=== PATIENT | male | born 1965 | race Asian ===

== ENCOUNTER 2016-10-23 05:27 | Inpatient (IN) | payer OTHER ==
[2016-10-22 10:05] VITALS: BMI 25.4
[~2016-10-23] VITALS: Ht 160 cm; Wt 73.4 kg
[2016-10-23] VITALS (32 sets, daily range): BP systolic 87–141; BP diastolic 51–96; PULSE 64–126; RESP 13–20
[2016-10-23] MEDS ORDERED: POLYMYXIN/BACITRACIN 1L IRRIG ONE (06:51)
[2016-10-23] MEDS ORDERED: LIDOCAINE 0.5%/EPI (MDV) 50 ML INJ ONE (06:51)
[2016-10-23] MEDS ORDERED: THROMBIN 5000 UNIT VIAL ONE (06:51)
[2016-10-23] MEDS ORDERED: GELATIN SIZE 100 SPONGE ONE (06:51)
[2016-10-23] MEDS ORDERED: ATOR40TA68 PO (06:59)
[2016-10-23] MEDS ORDERED: LISI40TA9 PO (06:59)
[2016-10-23] MEDS ORDERED: ASPI81TA3 PO (06:59)
[2016-10-23] MEDS ORDERED: SUMA50TA3 PO (06:59)
[2016-10-23] MEDS ORDERED: TRAM300T9 PO (06:59)
[2016-10-23] MEDS ORDERED: AMLO5TAB4 PO (06:59)
[2016-10-23] MEDS ORDERED: METF500T4 PO (06:59)
[2016-10-23] MEDS ORDERED: HYDR50TA3 PO (06:59)
[2016-10-23 07:00] LABS: BASOPHILS % 0.4 % (0.0-2.0); EOSINOPHILS # 0.2 10^3/ul (0.0-0.5); EOSINOPHILS % 3.1 % (0.0-7.0); HEMATOCRIT 39.6 % (42.0-52.0); HEMOGLOBIN 12.7 g/dl (14.0-18.0); LYMPHOCYTES # 2.3 10^3/ul (0.8-2.9); LYMPHOCYTES % 33.8 % (15.0-51.0); MEAN CORPUSCULAR HEMOGLOBIN 22.2 pg (29.0-33.0); MEAN CORPUSCULAR HGB CONC 32.1 g/dl (32.0-37.0); MEAN CORPUSCULAR VOLUME 69.1 fl (82.0-101.0); MONOCYTE # 0.5 10^3/ul (0.3-0.9); MONOCYTES % 7.5 % (0.0-11.0); NEUTROPHIL # 3.8 10^3/ul (1.6-7.5); NEUTROPHILS % 55.2 % (39.0-77.0); PLATELET COUNT 235 10^3/UL (140-440); RED BLOOD COUNT 5.73 10^6/ul (4.70-6.10); RED CELL DISTRIBUTION WIDTH 14.1 % (11.5-14.5); UNCORRECTED WBC 6.8 10^3/ul (4.8-10.8); WHITE BLOOD COUNT 6.8 10^3/ul (4.8-10.8)
[2016-10-23] MEDS ORDERED: GLYCOPYRROLATE 1 MG INJ ONE (07:00)
[2016-10-23] MEDS ORDERED: NEOSTIGMINE 3 MG/3 ML SYRINGE ONE (07:00)
[2016-10-23 07:07] LABS: CONDITION 1; LH ANALYZER COMMENTS 1
[2016-10-23 07:11] LABS: INR 0.91; PROTIME 12.3 Sec (12.2-14.2)
[2016-10-23 07:12] LABS: ALBUMIN 4.9 g/dl (3.3-4.9); PARTIAL THROMBOPLASTIN TIME 34.5 Sec (25.0-35.0)
[2016-10-23 07:13] LABS: POTASSIUM 5.7 mmol/L (3.5-5.1)
[2016-10-23 07:15] LABS: ALBUMIN/GLOBULIN RATIO 1.13; BILIRUBIN,INDIRECT 0.5 mg/dl (0-1.1); BILIRUBIN,TOTAL 0.5 mg/dl (0.2-1.3); TOTAL PROTEIN 9.2 g/dl (6.1-8.1)
[2016-10-23 07:18] LABS: CALCIUM 9.5 mg/dl (8.4-10.2); CREATININE 0.85 mg/dl (0.61-1.24)
[2016-10-23 07:23] LABS: ADD UMIC YES; URINE BILIRUBIN (Dip) NEGATIVE (NEGATIVE); URINE BLOOD (Dip) TRACE (NEGATIVE); URINE COLOR LT. YELLOW (YELLOW); URINE GLUCOSE (Dip) NEGATIVE (NEGATIVE); URINE KETONES (Dip) NEGATIVE (NEGATIVE); URINE LEUKOCYTE ESTERASE (Dip) NEGATIVE (NEGATIVE); URINE NITRITE (Dip) NEGATIVE (NEGATIVE); URINE TOTAL PROTEIN (Dip) NEGATIVE (NEGATIVE); URINE UROBILINOGEN (Dip) 0.2 E.U./dL (0.1-1.0)
--- NOTE | 2016-10-23 07:28 | HPN ---
Date/Time of Note Date/Time of Note DATE: 10/23/16 TIME: 07:27 Interval H&P Admission Note Pt. seen H&P reviewed: No system changes YE SCHUSTER PA-C Oct 23, 2016 07:27
[2016-10-23] MEDS ORDERED: ONDANSETRON 4 MG INJ IV PRN ×2 (07:30→10:00)
[2016-10-23] MEDS: DEXTROSE 5%-LR 1,000 ML IV SCH (07:30)
[2016-10-23 07:32] LABS: URINE RBCS 0-2 /HPF (0)
[2016-10-23] MEDS ORDERED: SUCCINYLCHOLINE CHLORIDE 100 MG/5 ML SYG IV ONE (07:38)
[2016-10-23] MEDS ORDERED: PROPOFOL 20 ML ONE (07:38)
[2016-10-23] MEDS ORDERED: MIDAZOLAM 1 MG/ML 2 ML INJ ONE (07:38)
[2016-10-23] MEDS ORDERED: LIDOCAINE 2% (SDV) 5 ML INJ ONE (07:38)
[2016-10-23] MEDS ORDERED: FENTAnyl 50 MCG/ML VIAL ONE (07:43)
[2016-10-23] MEDS ORDERED: PHENYLephrine (100 MCG/ML) 5ML SYG ONE ×3 (07:54→09:14)
[2016-10-23] MEDS ORDERED: ONDANSETRON 4 MG INJ ONE (08:02)
[2016-10-23] MEDS ORDERED: METOCLOPRAMIDE 10 MG INJ ONE (08:02)
[2016-10-23] MEDS ORDERED: FAMOTIDINE 20 MG INJ ONE (08:02)
[2016-10-23] MEDS ORDERED: ROCURONIUM 50 MG INJ ONE ×2 (08:02→08:23)
[2016-10-23] MEDS ORDERED: EPHEDrine SULFATE 50 MG/5 ML SYG ONE (08:25)
[2016-10-23] MEDS ORDERED: ESMOLOL 10 ML ONE (08:38)
[2016-10-23] MEDS ORDERED: HYDROmorphONE 2 MG/ML SYG ONE (09:32)
--- NOTE | 2016-10-23 09:38 | PREOPHP ---
DATE OF ADMISSION: 10/23/2016 HISTORY OF PRESENT ILLNESS: The patient is approximately 50 years of age, was originally seen in [facility] office for new consultation for evaluation of neck pain and weakness in his upper extremity and al so for gait imbalance. The patient was diagnosed with severe cervical stenosis with cord compressio n. Outpatient management was performed in the form of physical therapy, pain management as well as epidural injections. The patient's condition did not improve. He still continues to complain of ne ck pain and weakness in the extremities. He constantly loses his balance. He wants something more definitive to be done. PAST MEDICAL HISTORY: Per chart. SURGICAL HISTORY: Per chart. SOCIAL HISTORY: Lives with spouse. Denies using drugs, alcohol, tobacco. ALLERGIES: PER CHART. MEDICATIONS TAKEN AT HOME: Per chart. FAMILY HISTORY: Unremarkable. REVIEW OF SYSTEMS: Additional 10-point review of systems conducted. Pertinent positives stated in HPI, otherwise negative. PHYSICAL EXAMINATION: GENERAL: The patient is alert, oriented, follows commands properly. GCS 15. HEENT: Head is atraumatic, normocephalic. Eyes: Sclerae clear, nonicteric. EOMs intact. Pupils equal, reactive. Normal sinuses. Mouth: No lesions, no bleeding, no discharge. NECK: Supple. No thyromegaly, no JVD. No accessory muscle usage. PULMONARY: No dyspnea, no tachypnea. CARDIOVASCULAR: No JVD, no pedal edema. ABDOMEN: Soft without guarding. PERIPHERAL VASCULAR: No edema, no swelling. NEUROLOGIC: The patient has GCS 15 with cranial nerves I-XII intact. No gross abnormalities noted. UPPER EXTREMITIES: He has weakness in the right upper extremity, 3/5 strength at the deltoid, bicep s and the right triceps. Left upper extremity: The patient has good strength. 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 Sensation is intact on both sides. LOWER EXTREMITIES: He is able to move both the lower extremities ____ hip, knees and ankles without deficits. He has equal strength on both sides. Sensation is intact on both sides. IMAGING: MRI dated 09/09/2016 shows severe cervical stenosis with evidence of cord compression at t he C4-C5 level. The patient has severe stenosis from C3 all the way to C7. RECOMMENDATION AT THIS POINT: Obviously, the patient has failed conservative management. He has fa iled pain management, has failed physical therapy, has failed epidural injections. His condition is getting worse. The patient is having more neck pain, is having more weakness in the extremities an d is having more instability of his gait. The only option left at this point is surgical invention in the form of cervical ____ laminectomy ____ fusion. ____ patient was cleared for surgical interve ntion, will be admitted to the hospital for cervical 3 through cervical 7 laminectomy with ____ fusi on, and then patient will be admitted to the hospital for further evaluation and management. Dictated By: YE FRAZIER for BUFFY THOMAS/PANCHO Conf#: [id number] DID#: [id number]
[2016-10-23] MEDS ORDERED: FENTAnyl 50 MCG/ML VIAL IV PRN (10:00)
[2016-10-23] MEDS ORDERED: DIPHENHYDRAMINE 50 MG INJ IV PRN (10:00)
[2016-10-23] MEDS ORDERED: LABETALOL HCL 20MG INJ IV PRN (10:00)
[2016-10-23] MEDS ORDERED: PROCHLORPERAZINE 10 MG INJ IV PRN (10:00)
[2016-10-23] MEDS ORDERED: MEPERIDINE 25 MG INJ IV PRN (10:00)
[2016-10-23] MEDS ORDERED: hydrALAzine 20 MG INJ IV PRN (10:00)
[2016-10-23] MEDS: HYDROmorphONE (0.2 MG/ML) 10ML SYG IV PRN ×6 (11:49→21:30)
--- NOTE | 2016-10-23 12:44 | RADRPT ---
PROCEDURE: Intraoperative imaging of the cervical spine with fluoroscopy. CLINICAL INDICATION: Neck pain. Intraoperative. TECHNIQUE: 2 images of the cervical spine were obtained in the operating room with an image intens ifier. No radiologist was in attendance. 7.0 seconds of fluoroscopy time was used. COMPARISON: No prior study is available for comparison. FINDINGS: Images demonstrate skin sebastian overlying the cervical spine posteriorly. IMPRESSION: 1. Intraoperative imaging of the cervical spine. RPTAT: QQ .Robert Goodman MD, MD Date Time Electronically viewed and signed by .Robert Goodman MD, MD on 10/23/2016 12:44 .R/
[2016-10-23 13:41] LABS: ADD UMIC YES; URINE BILIRUBIN (Dip) NEGATIVE (NEGATIVE); URINE BLOOD (Dip) TRACE (NEGATIVE); URINE COLOR LT. YELLOW (YELLOW); URINE GLUCOSE (Dip) NEGATIVE (NEGATIVE); URINE KETONES (Dip) NEGATIVE (NEGATIVE); URINE LEUKOCYTE ESTERASE (Dip) NEGATIVE (NEGATIVE); URINE NITRITE (Dip) NEGATIVE (NEGATIVE); URINE TOTAL PROTEIN (Dip) NEGATIVE (NEGATIVE); URINE UROBILINOGEN (Dip) 0.2 E.U./dL (0.1-1.0)
[2016-10-23 14:09] LABS: URINE RBCS 0-2 /HPF (0)
[2016-10-23] MEDS: DEXAMETHASONE 4 MG/ML 1 ML INJ IV SCH ×2 (14:10→22:17)
[2016-10-23] MEDS: CEFAZOLIN 1 GM/50 ML (PMX) 50 ML IVPB SCH ×2 (14:11→22:17)
[2016-10-23] MEDS: morphine 10 MG INJ IM PRN ×2 (15:05→19:17)
--- NOTE | 2016-10-23 20:53 | HP ---
Date/Time of Note Date/Time of Note DATE: 10/23/16 TIME: 20:27 Assessment/Plan VTE Prophylaxis VTE Prophylaxis Intervention: SCD's Lines/Catheters IV Catheter Type (from Nrsg): Peripheral IV Urinary Cath still in place: Yes Reason Cath still needed: urinary retention Assessment/Plan Assessment/Plan 1. Severe cervical stenosis with evidence of cord compression of C4-C5 2. Status post cervical laminectomy with fusion by Dr. Peterson on 10/23/2016. - per neuosurgical recommendations. - sp post of antibiotics. - MRI of the neck for post-surgical evaluation. - Continue Decadron, morphine for pain, and Zofran p.r.n. for nausea. - Advance diet as patient tolerates. 3. Hypertension= stable, will start po meds when patient will start po 4. Diabetes Mellitus - Glycemic control - Hg AIC am PLAN Admit to ICU Check neck wound for s/s of infection Pain management AM labs Resume home po meds when stable DVT prophylaxis- SCDs only at this time. No ASA as patient is sp recent spinal Surgery.Further recommendations depend upon patient clinical course, De dr Rowell HPI/ROS Admit Date/Time Admit Date/Time Oct 23, 2016 at 05:27 Hx of Present Illness This is a 50 years old male patient was originally seen by neurologist for evaluation of neck pain and weakness in his upper extremity and also for gait imbalance. The patient was diagnosed with severe cervical stenosis with cord compression. Outpatient management was performed in the form of physical therapy, pain management as well as epidural injections were ineffective. Patient c/o complain of neck pain, weakness, and constantly losing his balance in the extremities all times. MRI on 09/09/2016 showed severe cervical stenosis with evidence of cord compression at the C4-C5 level. The patient has severe stenosis from C3 all the way to C7. Finally patient underwent cervical surgery by Dr Peterson. Patient was seen and assessed in Recovery. Patient is admitted under Dr. Rowell for further treatment and evaluation.Family at bed side- all questions answered. ALLERGIES: NKA MEDICATIONS TAKEN AT HOME: Per chart. FAMILY HISTORY: Unremarkable. REVIEW OF SYSTEMS: Additional 10-point review of systems conducted. Pertinent positives stated in HPI, otherwise negative. ROS Eyes: no complaints ENT: no complaints Respiratory: no complaints Cardiovascular: no complaints Gastrointestinal: no complaints Genitourinary: no complaints Musculoskeletal: neck pain Skin: no complaints Neurologic: other (sp cervical surgery- neck collar noted- intact) PMH/Family/Social Past Medical History Medical History: diabetes, hypertension Past Surgical History Past Surgical Hx: no surgical history Social History SOCIAL HISTORY: Lives with spouse. Denies using drugs, alcohol, tobacco. Alcohol Use: none Smoking Status: Never smoker Drug Use: none Exam/Review of Systems Vital Signs Vitals Vital Signs Date Time Temp Pulse Resp B/P Pulse Ox O2 Delivery O2 Flow Rate FiO2 10/23/16 19:41 120 19 119/74 97 Nasal Cannula 10/23/16 11:31 2.0 10/23/16 10:06 98.2 Exam Constitutional: alert, oriented, well developed Psych: nl mood/affect Eyes: EOMI, PERRL, nl sclera ENMT: nl external ears & nose Neck: other (sp laminectomy, neck collar noted.left neck tenderness noted.) Respiratory: clear to auscultation Cardiovascular: nl pulses Gastrointestinal: non-tender, soft Musculoskeletal: nl extremities to inspection Extremities: normal pulses Neurological: nl mental status, nl speech, other (able to move all four extremities) Skin: nl turgor Lymph: nontender Labs Result Diagram: 10/23/16 0600 10/23/16 0600 Medications Medications Current Medications Cefazolin Sodium (Ancef 1 Gm/50 ml (Pmx)) 50 ml @ 100 mls/hr Q8 IVPB Last administered on 10/23/16 14:11; Admin Dose 100 MLS/HR; Start 10/23/16 at 14:00 ; Stop 10/24/16 at 14:00 Dexamethasone (Decadron) 4 mg Q8 IV Last administered on 10/23/16 14:10; Admin Dose 4 MG; Start 10/23/16 at 14:00 Ondansetron HCl (Zofran Inj) 4 mg Q6H PRN IV NAUSEA AND/OR VOMITING; Start 09/27 at 07:30 Morphine Sulfate (morphine) 1 mg Q2H PRN IV mild; Start 10/23/16 at 07:30 Morphine Sulfate 2 mg 2 mg Q4H PRN IM mod-severe pain Last administered on 10/23 19:17; Admin Dose 1 MG; Start 10/23/16 at 07:30 Dextrose/Lactated Ringer's (D5-Lr) 1,000 ml @ 80 mls/hr [id number] IV Last administered on 10/23/16 07:30; Admin Dose 80 MLS/HR; Start 10/23/16 at 07:30 DANGELO DENNY Oct 23, 2016 20:49 09/27 at 07:30 Morphine Sulfate (morphine) 1 mg Q2H PRN IV mild; Start 10/23/16 at 07:30 Morphine Sulfate 2 mg 2 mg Q4H PRN IM mod-severe pain Last administered on 10/23 19:17; Admin Dose 1 MG; Start 10/23/16 at 07:30 Dextrose/Lactated Ringer's (D5-Lr) 1,000 ml @ 80 mls/hr [id number] IV Last administered on 10/23/16 07:30; Admin Dose 80 MLS/HR; Start 10/23/16 at 07:30 DANGELO DENNY Oct 23, 2016 20:49
[2016-10-24] VITALS (16 sets, daily range): BP systolic 100–138; BP diastolic 59–90; PULSE 78–105; RESP 13–22; Ht 160 cm; Wt 73.4 kg
[2016-10-24] MEDS: morphine 2 MG INJ IV PRN ×4 (01:34→13:42)
[2016-10-24] MEDS: DEXTROSE 5%-LR 1,000 ML IV SCH ×3 (03:37→14:00)
[2016-10-24 05:29] LABS: BASOPHILS % 0.1 % (0.0-2.0); HEMATOCRIT 33.8 % (42.0-52.0); HEMOGLOBIN 10.9 g/dl (14.0-18.0); LYMPHOCYTES # 0.8 10^3/ul (0.8-2.9); LYMPHOCYTES % 7.5 % (15.0-51.0); MEAN CORPUSCULAR HEMOGLOBIN 21.9 pg (29.0-33.0); MEAN CORPUSCULAR HGB CONC 32.1 g/dl (32.0-37.0); MEAN CORPUSCULAR VOLUME 68.3 fl (82.0-101.0); MEAN PLATELET VOLUME 8.9 fl (7.4-10.4); MONOCYTE # 0.3 10^3/ul (0.3-0.9); MONOCYTES % 2.6 % (0.0-11.0); NEUTROPHIL # 9.3 10^3/ul (1.6-7.5); NEUTROPHILS % 89.8 % (39.0-77.0); PLATELET COUNT 220 10^3/UL (140-440); RED BLOOD COUNT 4.95 10^6/ul (4.70-6.10); RED CELL DISTRIBUTION WIDTH 13.7 % (11.5-14.5); UNCORRECTED WBC 10.4 10^3/ul (4.8-10.8); WHITE BLOOD COUNT 10.4 10^3/ul (4.8-10.8)
[2016-10-24 05:31] LABS: CONDITION 1; LH ANALYZER COMMENTS 1
[2016-10-24 05:40] LABS: ALBUMIN 4.1 g/dl (3.3-4.9)
[2016-10-24 05:42] LABS: ALBUMIN/GLOBULIN RATIO 1.24; BILIRUBIN,INDIRECT 0.3 mg/dl (0-1.1); BILIRUBIN,TOTAL 0.3 mg/dl (0.2-1.3); CREATININE 0.98 mg/dl (0.61-1.24); TOTAL PROTEIN 7.4 g/dl (6.1-8.1)
[2016-10-24 05:43] LABS: CALCIUM 8.9 mg/dl (8.4-10.2)
[2016-10-24] MEDS: DEXAMETHASONE 4 MG/ML 1 ML INJ IV SCH ×3 (05:45→20:38)
[2016-10-24] MEDS: CEFAZOLIN 1 GM/50 ML (PMX) 50 ML IVPB SCH ×2 (05:45→13:41)
[2016-10-24] MEDS: FAMOTIDINE 20 MG TAB PO SCH (13:49)
--- NOTE | 2016-10-24 14:26 | PN ---
DATE: 10/24/2016 INTERNAL MEDICINE PROGRESS NOTE SUBJECTIVE: Followup on 50-year-old gentleman status post cervical laminectomy with fusion for cerv ical stenosis and cord compression of the C4-C5. The patient is currently awake, alert. Pain is we ll controlled. Denies any nausea, vomiting. The patient has a cervical collar. OBJECTIVE: VITAL SIGNS: Temperature is 98.7, pulse is 81, blood pressure is 112/75, respiratory rate 17, oxyge n saturation is 97% on 2 L nasal cannula. GENERAL: Well-developed, well-nourished gentleman in no acute distress, currently awake, alert. HEENT: Head is atraumatic, normocephalic. NECK: With cervical collar and drainage and surgical dressing. LUNGS: Clear bilaterally. There is no rhonchi, wheezes, rales noted. HEART: Normal S1, S2. No murmurs, gallops, clicks, rubs noted. ABDOMEN: Flat, soft, nondistended, nontender. Bowel sounds present. EXTREMITIES: There is no edema, clubbing, cyanosis. The patient has a Sinha catheter with clear ur ine. SKIN: There is no rash, petechiae noted. NEUROLOGIC: The patient is awake, alert, and oriented x3, no focal deficits noted. LABORATORY DATA: Today CBC: White blood cells 10.4, hemoglobin 10.9, hematocrit 33.8, platelets 22 0. Chemistry: Sodium 144, potassium 4.0, chloride 100, carbon dioxide 31, anion gap 17, BUN is 16, creatinine 0.98, glucose 192, AST 76, ALT 63, alkaline phosphate is 60. ASSESSMENT AND PLAN: 1. Severe cervical stenosis with evidence of cord compression of C4-C5, status post cervical spencer ctomy with fusion by Dr. Peterson on 10/23/2016. Continue to follow up surgical recommendations. Th e patient is pending MRI of the neck for post-surgical evaluation. The patient is currently on cefa zolin. Continue Decadron, morphine for pain, and Zofran p.r.n. for nausea. Advance diet as patient tolerates. Continue to follow up surgical recommendation. 2. Diabetes mellitus by history. Will resume metformin. Continue NovoLog per mild algorithm slidi ng scale before every meal and at bedtime. 3. Hypertension by history. Continue to monitor blood pressure, hydralazine p.r.n. for systolic bl ood pressure 170. The patient is currently normotensive. 4. Hyperlipidemia. Continue atorvastatin. We will continue sequential compression device for deep venous thrombosis prophylaxis and Pepcid for peptic ulcer disease prophylaxis. Further recommendations based on clinical course. Plan of care discussed with Dr. Jackson. Dictated By: ZONIA MORGAN DIRECTOR ENVIRONMENTAL for ADRIAN JACKSON MD SR/NTS Conf#: [id number] DID#: [id number]
[2016-10-24] MEDS: morphine 10 MG INJ IM PRN (17:48)
--- NOTE | 2016-10-24 18:32 | RADRPT ---
PROCEDURE: MR Cervical Spine. CLINICAL INDICATION: Cervical stenosis, cord compression, postoperative examination TECHNIQUE: An MRI of the cervical spine was performed utilizing the following sequences: Sagittal and axial T1 weighted, sagittal and axial T2 weighted, sagittal T2 weighted with fat saturation, and axial GRE. COMPARISON: 09/09/2016 FINDINGS: There is straightening of the normal cervical lordosis. The patient is status post laminectomies fr om C3 through C7. 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 Vertebral body height s are maintained. There is mild to moderate disk space narrowing from C4-C5 through C6-C7. There i s no subluxation. There is high T1 signal in the inferior C4 vertebral body, which may reflect a he mangioma or modic type 2 endplate signal change. There is congenital narrowing of the central spina l canal again seen at the C2 level. The craniocervical and cervical medullary junctions are unremarkable. Occiput-C2: The anatomic relationships are normal without canal stenosis. C2-3: There is mild to moderate left paracentral disk protrusion, 3 mm. There is severe left and mi ld to moderate right facet hypertrophy. There is moderate to severe central canal stenosis with AP canal diameter measuring 6 mm, and left lateral recess stenosis. There is associated mild cord flat tening, without abnormal cord signal identified. There is mild to moderate right and severe left ne ural foraminal stenosis. C3-4: There is no disk protrusion or extrusion. There is severe right and moderate left facet hyper trophy. There is no central canal stenosis. There is severe right and moderate to severe left neur al foraminal stenosis. C4-5: There is a mild disk osteophyte complex, 2 mm. There is bilateral uncovertebral hypertrophy. There is severe bilateral facet hypertrophy. There is minimal central canal stenosis. There is se blessing bilateral neural foraminal stenosis. There remains central high T2 signal within the cord, con sistent with myelomalacia. C5-6: There is no disk protrusion or extrusion. There is bilateral uncovertebral hypertrophy. Ther e is severe bilateral facet hypertrophy. There is no central canal stenosis. There is severe bilat eral neural foraminal stenosis. C6-7: There is a minimal disk osteophyte complex, and bilateral uncovertebral hypertrophy. There is severe bilateral facet hypertrophy. There is no central canal stenosis. There is severe bilateral neural foraminal stenosis. C7-T1: There is no disk protrusion or extrusion. There is moderate to severe bilateral facet hypert rophy. There is no central canal stenosis. There is no right foraminal stenosis. There is mild to moderate left foraminal stenosis. There is postoperative edema in the posterior soft tissues. IMPRESSION: 1. Interval laminectomies extending from C3-C7, with improvement of previously seen central canal s tenosis at these levels. There is a mild disk osteophyte complex at C4-C5, with minimal residual ce ntral canal narrowing. There is again noted myelomalacia in the cord at the C4-C5 level. 2. At C2-C3, congenital spinal canal narrowing along with a 3 mm left paracentral disk protrusion p roduce moderate to severe central canal stenosis with AP canal diameter measuring 6 mm, and left lat eral recess stenosis. There is associated cord flattening without definite abnormal cord signal. 3. Uncovertebral hypertrophy from C4-C5 through C6-C7. Severe and moderate to severe facet hypertr ophic changes throughout the cervical spine as described. These findings produce neural foraminal s tenosis, severe on the left at C2-C3, on the right at C3-C4, and on both sides from C4-C5 through C6 -C7. RPTAT: HBST .Adonis Campa MD, MD Date Time Electronically viewed and signed by .Adonis Campa MD, on 10/24/2016 18:32 .T/
--- NOTE | 2016-10-24 19:49 | CONS ---
Date/Time of Note Date/Time of Note DATE: 10/24/16 TIME: 19:47 Assessment/Plan Assessment/Plan Additional Assessment/Plan seen/examined cervical stenosis with cord compression cervical 3-7 laminectomy repeat mri shows good decompression of cervical spine awake/alert/follows/sensation intact/able to move all extremities hemovac with 50cc collection pt/ot dc planning for rehab if poss will dc hemovac in 24hrs Consultation Date/Type/Reason Admit Date/Time Oct 23, 2016 at 05:27 Initial Consult Date Exam/Review of Systems Vital Signs Vitals Vital Signs Date Time Temp Pulse Resp B/P Pulse Ox O2 Delivery O2 Flow Rate FiO2 10/24/16 14:00 91 18 121/86 93 Room Air 10/24/16 12:00 98.7 2.0 Intake and Output 10/23/16 10/23/16 10/24/16 15:00 23:00 07:00 Intake Total 1500 ml 162 ml 1430 ml Output Total 510 ml 2950 ml 1200 ml Balance 990 ml -2788 ml 230 ml Results Result Diagram: 10/24/16 0453 10/24/16 0500 Results 24 hrs Laboratory Tests Test 10/24/16 04:53 10/24/16 05:00 Basophils # 0.0 Basophils % 0.1 Blood Morphology Comment Eosinophils # 0.0 Eosinophils % 0.0 Hematocrit 33.8 L Hemoglobin 10.9 L Lymphocytes # 0.8 Lymphocytes % 7.5 L Mean Corpuscular Hemoglobin 21.9 L Mean Corpuscular Hemoglobin Concent 32.1 Mean Corpuscular Volume 68.3 L Mean Platelet Volume 8.9 Monocytes # 0.3 Monocytes % 2.6 Neutrophils # 9.3 H Neutrophils % 89.8 H Nucleated Red Blood Cells # 0.0 Nucleated Red Blood Cells % 0.0 Platelet Count 220 Red Blood Count 4.95 Red Cell Distribution Width 13.7 White Blood Count 10.4 # Alanine Aminotransferase (ALT/SGPT) 63 Albumin 4.1 Albumin/Globulin Ratio 1.24 Alkaline Phosphatase 60 Anion Gap 17 H Aspartate Amino Transf (AST/SGOT) 76 H Blood Urea Nitrogen 16 Calcium Level 8.9 Carbon Dioxide Level 31 Chloride Level 100 Creatinine 0.98 Direct Bilirubin 0.00 Globulin 3.30 H Glucose Level 192 Indirect Bilirubin 0.3 Potassium Level 4.0 Sodium Level 144 Total Bilirubin 0.3 Total Protein 7.4 # Medications Medications Current Medications Ondansetron HCl (Zofran Inj) 4 mg Q6H PRN IV NAUSEA AND/OR VOMITING; Start 09/27 at 07:30 Morphine Sulfate 1 mg 1 mg Q2H PRN IV mild Last administered on 10/24/16 13:42 ; Admin Dose 1 MG; Start 10/23/16 at 07:30 Dextrose/Lactated Ringer's (D5-Lr) 1,000 ml @ 80 mls/hr [id number] IV Last administered on 10/24/16 03:37; Admin Dose 80 MLS/HR; Start 10/23/16 at 07:30 Famotidine (Pepcid) 20 mg DAILY PO Last administered on 10/24/16 13:49; Admin Dose 20 MG; Start 10/24/16 at 13:00 Morphine Sulfate (morphine) 2 mg Q2H PRN IV PAIN LEVEL 1-5; Start 10/24/16 at 18:30 Acetaminophen/ Hydrocodone Bitart ([place] (5/325)) 1 tab Q4H PRN PO MILD PAIN LEVEL 1-3; Start 10/24/16 at 18:30 Morphine Sulfate (morphine) 4 mg Q4 PRN IV SEVERE PAIN LEVEL 7-10; Start at 18:30 Dexamethasone (Decadron) 4 mg Q12 IV ; Start 10/24/16 at 21:00; Status YE COLLINS PA-C Oct 24, 2016 19:49
[2016-10-24] MEDS: HYDROCODONE/APAP (5/325) TAB PO PRN ×2 (20:02→23:51)
[2016-10-24] MEDS: morphine 4 MG/ML VIAL IV PRN (21:23)
[2016-10-25] MEDS: morphine 4 MG/ML VIAL IV PRN (01:27)
[2016-10-25] MEDS: HYDROCODONE/APAP (5/325) TAB PO PRN ×5 (05:27→21:35)
[2016-10-25] MEDS: DEXTROSE 5%-LR 1,000 ML IV SCH ×2 (05:28→22:00)
[2016-10-25 07:53] VITALS: BP 142/89; RESP 16
[2016-10-25] MEDS: DEXAMETHASONE 4 MG/ML 1 ML INJ IV SCH ×2 (08:47→21:00)
[2016-10-25] MEDS: FAMOTIDINE 20 MG TAB PO SCH (08:47)
--- NOTE | 2016-10-25 16:21 | CONS ---
Date/Time of Note Date/Time of Note DATE: 10/25/16 TIME: 16:20 Assessment/Plan Assessment/Plan Additional Assessment/Plan seen/examined awake/alert/follows commands/moves all/sensation intact sp cervical decompression drain dced has been accepted to rehab pt can transfer to rehab Consultation Date/Type/Reason Admit Date/Time Oct 23, 2016 at 05:27 Exam/Review of Systems Vital Signs Vitals Vital Signs Date Time Temp Pulse Resp B/P Pulse Ox O2 Delivery O2 Flow Rate FiO2 10/25/16 07:53 97.4 94 16 142/89 100 10/24/16 20:10 Room Air 10/24/16 12:00 2.0 Intake and Output 10/24/16 10/24/16 10/25/16 15:00 23:00 07:00 Intake Total 690 ml 900 ml 120 ml Output Total 960 ml 1250 ml 290 ml Balance -270 ml -350 ml -170 ml Results Result Diagram: 10/24/16 0453 10/24/16 0500 Medications Medications Current Medications Ondansetron HCl (Zofran Inj) 4 mg Q6H PRN IV NAUSEA AND/OR VOMITING; Start 09/27 at 07:30 Morphine Sulfate 1 mg 1 mg Q2H PRN IV mild Last administered on 10/24/16 13:42 ; Admin Dose 1 MG; Start 10/23/16 at 07:30 Dextrose/Lactated Ringer's (D5-Lr) 1,000 ml @ 80 mls/hr [id number] IV Last administered on 10/25/16 05:28; Admin Dose 80 MLS/HR; Start 10/23/16 at 07:30 Famotidine (Pepcid) 20 mg DAILY PO Last administered on 10/25/16 08:47; Admin Dose 20 MG; Start 10/24/16 at 13:00 Morphine Sulfate (morphine) 2 mg Q2H PRN IV PAIN LEVEL 1-5; Start 10/24/16 at 18:30 Acetaminophen/ Hydrocodone Bitart ([place] (5/325)) 1 tab Q4H PRN PO MILD PAIN LEVEL 1-3 Last administered on 10/25/16 13:35; Admin Dose 1 TAB; Start at 18:30 Morphine Sulfate (morphine) 4 mg Q4 PRN IV SEVERE PAIN LEVEL 7-10 Last administered on 10/25/16 01:27; Admin Dose 4 MG; Start 10/24/16 at 18:30 Dexamethasone (Decadron) 4 mg Q12 IV Last administered on 10/25/16 08:47; Admin Dose 4 MG; Start 10/24/16 at 21:00 YE SCHUSTER PA-C Oct 25, 2016 16:21
[2016-10-25 16:57] LABS: BASOPHILS % 0.1 % (0.0-2.0); HEMATOCRIT 34.2 % (42.0-52.0); LYMPHOCYTES # 1.1 10^3/ul (0.8-2.9); MEAN CORPUSCULAR HEMOGLOBIN 21.9 pg (29.0-33.0); MEAN CORPUSCULAR HGB CONC 32.1 g/dl (32.0-37.0); MEAN CORPUSCULAR VOLUME 68.3 fl (82.0-101.0); MEAN PLATELET VOLUME 8.8 fl (7.4-10.4); MONOCYTE # 0.7 10^3/ul (0.3-0.9); MONOCYTES % 5.4 % (0.0-11.0); NEUTROPHIL # 10.4 10^3/ul (1.6-7.5); NEUTROPHILS % 85.5 % (39.0-77.0); PLATELET COUNT 252 10^3/UL (140-440); RED BLOOD COUNT 5.01 10^6/ul (4.70-6.10); RED CELL DISTRIBUTION WIDTH 13.7 % (11.5-14.5); UNCORRECTED WBC 12.1 10^3/ul (4.8-10.8); WHITE BLOOD COUNT 12.1 10^3/ul (4.8-10.8)
[2016-10-25] MEDS ORDERED: GLUCOSE GEL 15 GRAM TUBE PO PRN ×2 (17:00)
[2016-10-25] MEDS ORDERED: GLUCAGON 1 MG INJ IM PRN (17:00)
[2016-10-25] MEDS ORDERED: GLUCOSE GEL 15 GRAM TUBE BUCCAL PRN (17:00)
[2016-10-25] MEDS ORDERED: SENNA TAB PO PRN (17:00)
[2016-10-25] MEDS ORDERED: DEXTROSE 50% 50 ML SYRINGE IV PRN ×2 (17:00)
--- NOTE | 2016-10-25 17:00 | PN ---
Date/Time of Note Date/Time of Note DATE: 10/25/16 TIME: 16:53 Assessment/Plan VTE Prophylaxis VTE Prophylaxis Intervention: contraindicated, SCD's Lines/Catheters IV Catheter Type (from Nrsg): [place] Lock Central line still needed: No Urinary Cath still in place: No Assessment/Plan Assessment/Plan 50 yo Male with 1. Severe cervical stenosis with evidence of cord compression of C4-C5, status post cervical laminectomy with fusion by Dr. Peterson on 10/23/2016. Continue to follow up surgical recommendations. The patient is pending MRI of the neck for post-surgical evaluation. The patient is currently on cefazolin. Continue Decadron, morphine for pain, and Zofran p.r.n. for nausea. Advance diet as patient tolerates. Continue to follow up surgical recommendation. 2. Diabetes mellitus by history. Accucheck QACHS NovoLog per mild algorithm sliding scale before every meal and at bedtime. 3. Hypertension by history. Resume Norvasc and Lisinopril 4. Hyperlipidemia. Continue atorvastatin. 5. DVT prophylaxis- SCDs only at this time. No ASA NO AC, recent spinal Sx. 6. Bowel Care/Constipation- Will start Stool softeners Subjective 24 Hr Interval Summary Free Text/Dictation Diet Advance, pain Controlled, Voided after stewart removal. No BM yet. No N/V, NO Fever or chills. Constitutional: No requiring O2 Exam/Review of Systems Vital Signs Vitals Vital Signs Date Time Temp Pulse Resp B/P Pulse Ox O2 Delivery O2 Flow Rate FiO2 10/25/16 07:53 97.4 94 16 142/89 100 10/24/16 20:10 Room Air 10/24/16 12:00 2.0 Intake and Output 10/24/16 10/24/16 10/25/16 15:00 23:00 07:00 Intake Total 690 ml 900 ml 120 ml Output Total 960 ml 1250 ml 290 ml Balance -270 ml -350 ml -170 ml Exam Constitutional: alert, oriented, No distress Psych: No anxiety Head: atraumatic, normocephalic Eyes: EOMI ENMT: mucosa pink and moist Neck: No jvd Respiratory: clear to auscultation, No crackles/rales Cardiovascular: regular rate and rhythm, No edema Gastrointestinal: non-tender, soft, No distended, No rebound or guarding Musculoskeletal: nl extremities to inspection Extremities: No edema Neurological: INSTALLERS MECHANICAL II-XII intact, nl mental status, No confused, No lethargic Skin: nl turgor, No diaphoresis Results Result Diagram: 10/24/16 0453 10/24/16 0500 Medications Medications Current Medications Ondansetron HCl (Zofran Inj) 4 mg Q6H PRN IV NAUSEA AND/OR VOMITING; Start 09/27 at 07:30 Morphine Sulfate 1 mg 1 mg Q2H PRN IV mild Last administered on 10/24/16 13:42 ; Admin Dose 1 MG; Start 10/23/16 at 07:30 Dextrose/Lactated Ringer's (D5-Lr) 1,000 ml @ 80 mls/hr [id number] IV Last administered on 10/25/16 05:28; Admin Dose 80 MLS/HR; Start 10/23/16 at 07:30 Famotidine (Pepcid) 20 mg DAILY PO Last administered on 10/25/16 08:47; Admin Dose 20 MG; Start 10/24/16 at 13:00 Morphine Sulfate (morphine) 2 mg Q2H PRN IV PAIN LEVEL 1-5; Start 10/24/16 at 18:30 Acetaminophen/ Hydrocodone Bitart ([place] (5/325)) 1 tab Q4H PRN PO MILD PAIN LEVEL 1-3 Last administered on 10/25/16 13:35; Admin Dose 1 TAB; Start at 18:30 Morphine Sulfate (morphine) 4 mg Q4 PRN IV SEVERE PAIN LEVEL 7-10 Last administered on 10/25/16 01:27; Admin Dose 4 MG; Start 10/24/16 at 18:30 Dexamethasone (Decadron) 4 mg Q12 IV Last administered on 10/25/16 08:47; Admin Dose 4 MG; Start 10/24/16 at 21:00 CHRISTINA VAUGHAN MD Oct 25, 2016 17:00
[2016-10-25 17:07] LABS: CONDITION 1; LH ANALYZER COMMENTS 1; POTASSIUM 4.1 mmol/L (3.5-5.1)
[2016-10-25 17:09] LABS: CREATININE 0.82 mg/dl (0.61-1.24)
[2016-10-25 17:10] LABS: CALCIUM 9.3 mg/dl (8.4-10.2)
[2016-10-25] MEDS: INSULIN ASPART [NOVOLOG] 3 ML PEN SC SCH ×2 (17:38→21:00)
[2016-10-25] MEDS: morphine 2 MG INJ IV PRN ×2 (18:42→20:56)
[2016-10-25 20:05] VITALS: BP 113/70; RESP 18
[2016-10-25] MEDS: DOCUSATE SODIUM 100 MG CAP PO SCH (20:58)
[2016-10-25] MEDS ORDERED: ATORVASTATIN 40 MG TAB PO SCH (21:00)
[2016-10-26] MEDS ORDERED: ACCUCHECK XX SCH (02:00)
[2016-10-26] MEDS: HYDROCODONE/APAP (5/325) TAB PO PRN ×2 (02:00→06:37)
[2016-10-26] MEDS: morphine 2 MG INJ IV PRN ×3 (02:21→09:28)
[2016-10-26 07:13] VITALS: BP 121/72; RESP 16
[2016-10-26] MEDS ORDERED: AMLODIPINE 5 MG TAB PO SCH (09:00)
[2016-10-26] MEDS ORDERED: LISINOPRIL 20 MG TAB PO SCH (09:00)
[2016-10-26] MEDS: INSULIN ASPART [NOVOLOG] 3 ML PEN SC SCH ×2 (09:23→13:28)
[2016-10-26] MEDS: FAMOTIDINE 20 MG TAB PO SCH (09:25)
[2016-10-26] MEDS: DOCUSATE SODIUM 100 MG CAP PO SCH (09:25)
[2016-10-26] MEDS: DEXAMETHASONE 4 MG/ML 1 ML INJ IV SCH (09:25)
[2016-10-26] MEDS: DEXTROSE 5%-LR 1,000 ML IV SCH (10:30)
[2016-10-26] MEDS ORDERED: CARISOPRODOL 350 MG TAB PO PRN (12:00)
--- NOTE | 2016-10-26 13:15 | PN ---
Date/Time of Note Date/Time of Note DATE: 10/26/16 TIME: 13:13 Assessment/Plan VTE Prophylaxis VTE Prophylaxis Intervention: SCD's Lines/Catheters IV Catheter Type (from Nrsg): Saline Lock Urinary Cath still in place: No Assessment/Plan Assessment/Plan 1. Severe cervical stenosis with evidence of cord compression of C4-C5 2. Status post cervical laminectomy with fusion by Dr. Peterson on 10/23/2016. - per neuosurgical recommendations. - sp post of antibioticaThe patient is pending MRI of the neck for post- surgical evaluation. The patient is currently on cefazolin. - Continue Decadron, morphine for pain, and Zofran p.r.n. for nausea. - Advance diet as patient tolerates. 3. Diabetes mellitus by history. - Accucheck QACHS NovoLog per mild algorithm sliding scale before every meal and at bedtime. 4. Hypertension by history. - on Norvasc and Lisinopril 5. Hyperlipidemia. Continue atorvastatin. 6. Bowel Care/Constipation- on Stool softeners DVT prophylaxis- SCDs only at this time. No ASA as patient is sp recent spinal Surgery.Further recommendations depend upon patient clinical course, De dr Rowell Subjective 24 Hr Interval Summary Constitutional: requiring IVF Eyes: no complaints ENT: pain Respiratory: no complaints Cardiovascular: no complaints Gastrointestinal: no complaints Genitourinary: no complaints Musculoskeletal: no complaints Skin: no complaints Neurologic: other (neck pain) Endocrine: no complaints Lymphatic: no complaints Psychological: no complaints Immunologic: no complaints Exam/Review of Systems Vital Signs Vitals Vital Signs Date Time Temp Pulse Resp B/P Pulse Ox O2 Delivery O2 Flow Rate FiO2 10/26/16 07:13 98.3 60 16 121/72 95 10/24/16 20:10 Room Air 10/24/16 12:00 2.0 Intake and Output 10/25/16 10/25/16 10/26/16 15:00 23:00 07:00 Intake Total 320 ml 700 ml 400 ml Output Total 800 ml 800 ml Balance 320 ml -100 ml -400 ml Exam Constitutional: alert, oriented, well developed Head: atraumatic Eyes: EOMI, PERRL, nl sclera ENMT: nl external ears & nose Neck: non-tender Respiratory: clear to auscultation Gastrointestinal: non-tender, soft Musculoskeletal: nl extremities to inspection Extremities: normal pulses Neurological: nl mental status, nl speech Skin: other (sp cx laminectomy- 10/23/16) Lymph: nontender Results Result Diagram: 10/25/16 1605 10/25/16 1605 Results 24 hrs Laboratory Tests Test 10/25/16 16:05 10/25/16 17:30 10/25/16 21:01 10/26/16 08:39 Anion Gap 18 H Basophils # 0.0 Basophils % 0.1 Blood Morphology Comment Blood Urea Nitrogen 26 H Calcium Level 9.3 Carbon Dioxide Level 29 Chloride Level 99 Creatinine 0.82 Eosinophils # 0.0 Eosinophils % 0.0 Glucose Level 182 Hematocrit 34.2 L Hemoglobin 11.0 L Lymphocytes # 1.1 Lymphocytes % 9.0 L Mean Corpuscular Hemoglobin 21.9 L Mean Corpuscular Hemoglobin Concent 32.1 Mean Corpuscular Volume 68.3 L Mean Platelet Volume 8.8 Monocytes # 0.7 Monocytes % 5.4 Neutrophils # 10.4 H Neutrophils % 85.5 H Nucleated Red Blood Cells # 0.0 Nucleated Red Blood Cells % 0.0 Platelet Count 252 Potassium Level 4.1 Red Blood Count 5.01 Red Cell Distribution Width 13.7 Sodium Level 142 White Blood Count 12.1 H Bedside Glucose 153 172 157 Test 10/26/16 11:50 Bedside Glucose 254 H Medications Medications Current Medications Ondansetron HCl (Zofran Inj) 4 mg Q6H PRN IV NAUSEA AND/OR VOMITING; Start 09/27 at 07:30 Morphine Sulfate 1 mg 1 mg Q2H PRN IV mild Last administered on 10/25/16 18:42 ; Admin Dose 1 MG; Start 10/23/16 at 07:30 Dextrose/Lactated Ringer's (D5-Lr) 1,000 ml @ 80 mls/hr [id number] IV Last administered on 10/25/16 05:28; Admin Dose 80 MLS/HR; Start 10/23/16 at 07:30 Famotidine (Pepcid) 20 mg DAILY PO Last administered on 10/26/16 09:25; Admin Dose 20 MG; Start 10/24/16 at 13:00 Morphine Sulfate (morphine) 2 mg Q2H PRN IV PAIN LEVEL 1-5 Last administered on 10/26/16 09:28; Admin Dose 2 MG; Start 10/24/16 at 18:30 Acetaminophen/ Hydrocodone Bitart ([place] (5/325)) 1 tab Q4H PRN PO MILD PAIN LEVEL 1-3 Last administered on 10/26/16 06:37; Admin Dose 1 TAB; Start at 18:30 Morphine Sulfate (morphine) 4 mg Q4 PRN IV SEVERE PAIN LEVEL 7-10 Last administered on 10/25/16 01:27; Admin Dose 4 MG; Start 10/24/16 at 18:30 Dexamethasone (Decadron) 4 mg Q12 IV Last administered on 10/26/16 09:25; Admin Dose 4 MG; Start 10/24/16 at 21:00 Diagnostic Test (Pha) (Accucheck) 1 ea 02 XX ; Start 10/26/16 at 02:00 Amlodipine Besylate (Norvasc) 5 mg DAILY PO Last administered on 10/26/16 09: 25; Admin Dose 5 MG; Start 10/26/16 at 09:00 Atorvastatin Calcium (Lipitor) 40 mg QHS PO Last administered on 10/25/16 20: 58; Admin Dose 40 MG; Start 10/25/16 at 21:00 Lisinopril (Zestril) 40 mg DAILY PO Last administered on 10/26/16 09:24; Admin Dose 40 MG; Start 10/26/16 at 09:00 Miscellaneous Information 1 ea NOTE XX ; Start 10/25/16 at 17:00 Glucose (Glutose) 15 gm Q15M PRN PO DECREASED GLUCOSE; Start 10/25/16 at 17:00 Glucose (Glutose) 22.5 gm Q15M PRN PO DECREASED GLUCOSE; Start 10/25/16 at 17: 00 Dextrose (D50w Syringe) 25 ml Q15M PRN IV DECREASED GLUCOSE; Start 10/25/16 at 17:00 Dextrose (D50w Syringe) 50 ml Q15M PRN IV DECREASED GLUCOSE; Start 10/25/16 at 17:00 Glucagon (Glucagen) 1 mg Q15M PRN IM DECREASED GLUCOSE; Start 10/25/16 at 17:00 Glucose (Glutose) 15 gm Q15M PRN BUCCAL DECREASED GLUCOSE; Start 10/25/16 at 17 :00 Docusate Sodium (Colace) 100 mg BID PO Last administered on 10/26/16 09:25; Admin Dose 100 MG; Start 10/25/16 at 21:00 Senna (Senokot) 1 tab BID PRN PO CONSTIPATION Last administered on 10/26/16 09 :25; Admin Dose 1 TAB; Start 10/25/16 at 17:00 Carisoprodol (Soma) 350 mg Q8H PRN PO MUSCLE SPASMS Last administered on 11:49; Admin Dose 350 MG; Start 10/26/16 at 12:00 DANGELO DENNY Oct 26, 2016 13:15
--- NOTE | 2016-10-28 11:42 | OPR ---
DATE OF OPERATION: 10/23/2016 PREOPERATIVE DIAGNOSES: 1. Cervical stenosis. 2. Cervical radiculopathy. 3. Cervical myelopathy. 4. Cervical cord compression. POSTOPERATIVE DIAGNOSES: 1. Cervical stenosis. 2. Cervical radiculopathy. 3. Cervical myelopathy. 4. Cervical cord compression. 5. Cervical quadriparesis. PROCEDURES: 1. C3 to C4 posterolateral fusion, CPT 79633. 2. C4 to C5, C5 to C6 and C6 to C7 posterolateral fusions, CPT 49739 x3. 3. C3 bilateral laminectomy, medial facetectomy and foraminotomy, CPT 00785. 4. C4, C5, C6, C7 additional 4-level bilateral laminectomy, medial [place] [address] x4. SURGEON: Buffy Peterson MD HEARING OFFICER: Say FRAZIER COMPLICATIONS OF OPERATION: None. ANESTHESIA: General endotracheal. EBL: Less than 200. COUNTS: Needle counts, sponge counts were correct. SPECIMENS: Multiple fragments of the lamina were sent for pathology. INDICATIONS FOR OPERATION: Please refer to my consultation. The patient is well known to me. Shelley ent has been seen by me in the office on multiple occasions. The patient has been complaining of ne ck pain as well as arm pain, radiation of pain to bilateral upper extremities and bilateral lower ex tremities, difficulty walking with normal daily activities. We will proceed with cervical decompress martinez surgery. Risks and benefits of the operation including anesthesia, infection, bleeding, permanen t neurologic injury and were explained. The patient agreed to proceed with the operation and signed the consent. PROCEDURE IN DETAIL: The patient was placed in supine position. General endotracheal anesthesia wa s obtained. The patient was turned prone on vertical bolsters. Back of the neck was shaved, prepped and draped in normal sterile fashion and was infiltrated with lidocaine with epinephrine solution. Midline incision was made with a #10 blade and was carried to the lamina of C3, C4, C5, C6, C7. The lateral masses were identified. Utilizing the high-speed Midas Silver drill with a Lukens trap, I harvested the bone by performing a laminectomy by morselizing the bone with the high-speed Midas Silver drill with AM-8 bit. All the bleeders were stopped with bone wax. Utilizing #3 and #4 Kerrison punches, I performed laminectomy from C3 all the way to C7, performing medial facetectomy and foraminotomy at each and every level, decompressing the spinal canal, lateral ly into the neural foramen. Following this, the area was irrigated with bacitracin-saline solution. The closure of the wound at this time was started with placement of a medium-sized Hemovac drain in the wound, exiting from ski n through a separate stab incision and was secured to skin with sutures. Closure of wound was done with #1 Vicryl for cervical fascia, 2-0 and 3-0 Vicryl for subcutaneous tissue and dermis with Steri -Strips for the skin. Patient tolerated the procedure well, was taken to postanesthesia recovery in stable condition, following commands, moving all muscle groups of the upper and lower extremities. Spinal monitoring showed improvement of signal throughout the case. Dictated By: BUFFY DASILVA/PANCHO Conf#: [id number] DID#: [id number]
--- NOTE | 2016-11-14 13:54 | DS ---
DATE OF ADMISSION: 10/23/2016 DATE OF DISCHARGE: 10/26/2016 The patient is well known to me. Patient has cervical stenosis. He is going to be admitted 017 to undergo cervical laminectomy decompression of cervical spine. HISTORY OF PRESENT ILLNESS: Please refer to my ____. PROCEDURE DURING HOSPITALIZATION: Cervical laminectomy, fusion. Consultations during hospitalization was done. HOSPITAL COURSE: After the operation, the patient was transferred to the neurosurgical floor, [facility] to regular diet. Oral pain medication was given. Physical therapy ____ The patient was discha rged to rehab in stable condition. CONDITION AT DISCHARGE: Stable. MEDICATIONS: Per chart. REVIEW OF SYSTEMS: ____ FOLLOWUP: In 4 weeks in the office. Dictated By: BUFFY DASILVA/PANCHO Conf#: [id number] DID#: [id number]
--- NOTE | 2016-11-26 07:06 | CONS ---
DATE OF ADMISSION: 10/23/2016 DATE OF CONSULTATION: 10/23/2016 DATE OF OPERATION: 10/23/2016 PREOPERATIVE DIAGNOSIS: 1. Cervical stenosis. 2. Cervical radiculopathy. 3. Cervical myelopathy. 4. Cervical cord compression. POSTOPERATIVE DIAGNOSIS: 1. Cervical stenosis. 2. Cervical radiculopathy. 3. Cervical myelopathy. 4. Cervical cord compression. 5. Cervical quadriparesis. PROCEDURE: 1. C3 to C4 posterolateral fusion, CPT 25067. 2. C4 to C5, C5 to C6, C6 to C7 posterolateral fusion, CPT 70330 x3. 3. C3 bilateral laminectomy, medial facetectomy, and foraminotomy, CPT 42773. 4. C4, C5, C6, C7 additional 4-level bilateral laminectomy, medial facetectomy[place] [address] x4. SURGEON: Buffy Peterson MD EVENT TECHNICIAN: . COMPLICATIONS OF THE OPERATION: None. ANESTHESIA: General endotracheal. ESTIMATED BLOOD LOSS: Less than 200. COUNTS: Needle counts, sponge counts were correct. SPECIMENS: Multiple fragments of the lamina was sent to pathology. INDICATIONS FOR THE OPERATION: Please refer to my consultation. Patient is well known to me. The patient has been seen by me in the office on multiple occasions. The patient has been complaining o f neck pain as well as arm pain, with radiation of pain to bilateral upper extremities and bilateral lower extremities, difficulty walking with normal daily activities. We will proceed with cervical decompressive surgery. Risks and benefits of the operation including anesthesia, infection, bleedin g, permanent neurological injury, and were explained. The patient agreed to proceed with the operation and signed the consent. PROCEDURE IN DETAIL: The patient was placed in supine position. After adequate general endotrachea l anesthesia was obtained, the patient was turned prone on vertical bolsters. Back was shaved, prep ped, and draped in normal sterile fashion, and was infiltrated with lidocaine with epinephrine solut ion. Midline incision was made with a #10 blade and was carried out to the lamina of C3, C4, C5, C6 , and C7. The lateral masses were identified. Utilizing the high-speed Midas Silver drill with the Luedils trap, I harvested the bone by performing a laminectomy, by morcellizing the bone with a high speed Midas R ex drillbit. All the bleeders were stopped with bone wax. The bone was harvested via Lukens trap. Utilizing #3 and #4 Kerrison punches, I performed a laminectomy from C3 all the way to C7, performin g a medial facetectomy and foraminotomy at each and every level, decompressing the spinal canal late rally into the neural foramen. Following this, the area was irrigated with bacitracin saline solution. The bone that was harvested during the laminectomy, which was in Lukens trap, was washed with bacitracin, saline solution. Fol lowing that, the bone was compacted and compressed in in a cylindrical shape. The lateral masses of C3, C4, C5, C6, C7 was completely decorticated, and the bone that was harveste d was placed as an onlay graft from C3 to C7, achieving posterolateral in situ fusion. Gelfoam was placed over the dura to stop any bleeders. Medium-sized Hemovac drain was placed in the wound, exiting from the skin through a separate stab incision. Following this, the area was irrigated with bacitracin saline solution. The closure of wound at thi s time was started with placement of a medium size Hemovac drain exited from the skin through a separate stab incision, was secured to the skin with sutures. Closure was done with #1 Vicryl for cervical fascia, 2-0 and 3-0 Vicryl for subcutaneous tissue and dermis, with Steri-Strips for the s kin. The patient tolerated the procedure well, was taken to postanesthesia recovery in stable condition, following commands, moving all muscle groups of the upper and lower extremity. S1 monitoring showed improvement of improvement of signal throughout the case. As I said, this is a revision of the job #[id number]; or conference number [id number], and the other job num pavan should be fixed, and this should replace that job number Dictated By: BUFFY DASILVA/PANCHO Conf#: [id number] DID#: [id number]
== END 2016-10-26 14:10 | DRG 472 ==
LOC: REC 05:27 → ICU 10-24 03:18 → MS1 10-24 14:32
PROVIDERS: ADMIT Neurological Surgery; ATTEND Neurological Surgery
PROC: 0RG2071 Fusion of 2 or more Cervical Vertebral Joints with Autologous Tissue Substitute, Posterior Approach, Posterior Column, Open Approach (ICD-10-PCS; principal; 2016-10-23 07:30)
DX: M48.02 Spinal stenosis, cervical region (principal); G95.20 Unspecified cord compression; M54.12 Radiculopathy, cervical region; I10 Essential (primary) hypertension; E11.9 Type 2 diabetes mellitus without complications; E78.5 Hyperlipidemia, unspecified; K59.00 Constipation, unspecified; Z79.84 Long term (current) use of oral hypoglycemic drugs; Z79.899 Other long term (current) drug therapy
CPT/HCPCS: 72040; 72141; 80048; 80053; 81001; 81003; 82962; 85025; 85610; 85730; 86850; 86900; 86901; 87086; 97116; 97162; 97530; J0330; J0690; J1100; J1170; J1815; J2250; J2270; J2370; J2405; J2710; J2765; J3010; J7121

== ENCOUNTER 2016-10-26 10:40 | Inpatient (IN) | payer OTHER ==
[~2016-10-26] VITALS: Ht 160 cm; Wt 73.4 kg
[~2016-10-26 10:40] MED LIST: AMLO5TAB4 PO; ASPI81TA3 PO; ATOR40TA68 PO; HYDR50TA3 PO; LISI40TA9 PO; METF500T4 PO; SUMA50TA3 PO; TRAM300T9 PO
[2016-10-26] MEDS ORDERED: BISACODYL 10 MG SUPP PR PRN (15:00)
[2016-10-26] MEDS ORDERED: MAGNESIUM HYDROXIDE 30ML CUP PO PRN (15:00)
[2016-10-26] MEDS ORDERED: GLUCAGON 1 MG INJ IM PRN (15:00)
[2016-10-26] MEDS ORDERED: GLUCOSE GEL 15 GRAM TUBE PO PRN ×2 (15:00)
[2016-10-26] MEDS ORDERED: ONDANSETRON 4 MG INJ IV PRN (15:00)
[2016-10-26] MEDS ORDERED: DEXTROSE 50% 50 ML SYRINGE IV PRN ×2 (15:00)
[2016-10-26] MEDS ORDERED: morphine 4 MG/ML VIAL IV PRN (15:00)
[2016-10-26] MEDS ORDERED: LACTULOSE 30ML CUP PO PRN (15:00)
[2016-10-26] MEDS ORDERED: GLUCOSE GEL 15 GRAM TUBE BUCCAL PRN (15:00)
[2016-10-26] MEDS ORDERED: SENNA TAB PO PRN (15:00)
[2016-10-26] MEDS ORDERED: morphine 2 MG INJ IV PRN (15:00)
[2016-10-26 15:01] LABS: ADD UMIC YES; URINE BILIRUBIN (Dip) NEGATIVE (NEGATIVE); URINE BLOOD (Dip) TRACE (NEGATIVE); URINE COLOR LT. YELLOW (YELLOW); URINE KETONES (Dip) NEGATIVE (NEGATIVE); URINE LEUKOCYTE ESTERASE (Dip) NEGATIVE (NEGATIVE); URINE NITRITE (Dip) NEGATIVE (NEGATIVE); URINE TOTAL PROTEIN (Dip) NEGATIVE (NEGATIVE); URINE UROBILINOGEN (Dip) 0.2 E.U./dL (0.1-1.0)
[2016-10-26 15:24] VITALS: BP 129/85; PULSE 91; RESP 20
[2016-10-26 15:33] LABS: URINE RBCS 0-2 /HPF (0)
[2016-10-26] MEDS: morphine 2 MG INJ IV PRN ×2 (16:39→20:09)
[2016-10-26] MEDS: CARISOPRODOL 350 MG TAB PO PRN (17:05)
[2016-10-26] MEDS: INSULIN ASPART [NOVOLOG] 3 ML PEN SC SCH ×2 (18:27→20:18)
[2016-10-26 20:00] VITALS: BP 114/72; PULSE 78; RESP 14
[2016-10-26] MEDS: DEXAMETHASONE 4 MG/ML 1 ML INJ IV SCH (20:08)
[2016-10-26] MEDS: ATORVASTATIN 40 MG TAB PO SCH (20:09)
[2016-10-26] MEDS: DOCUSATE SODIUM 100 MG CAP PO SCH (20:09)
[2016-10-27] MEDS: morphine 2 MG INJ IV PRN ×3 (01:35→10:07)
[2016-10-27] MEDS: ACCUCHECK XX SCH (02:00)
[2016-10-27 07:12] LABS: BASOPHILS % 0.4 % (0.0-2.0); HEMATOCRIT 34.2 % (42.0-52.0); HEMOGLOBIN 11.2 g/dl (14.0-18.0); LYMPHOCYTES # 1.7 10^3/ul (0.8-2.9); LYMPHOCYTES % 17.9 % (15.0-51.0); MEAN CORPUSCULAR HEMOGLOBIN 22.2 pg (29.0-33.0); MEAN CORPUSCULAR HGB CONC 32.7 g/dl (32.0-37.0); MEAN CORPUSCULAR VOLUME 67.9 fl (82.0-101.0); MEAN PLATELET VOLUME 8.9 fl (7.4-10.4); MONOCYTE # 0.6 10^3/ul (0.3-0.9); MONOCYTES % 6.7 % (0.0-11.0); NEUTROPHIL # 7.1 10^3/ul (1.6-7.5); PLATELET COUNT 260 10^3/UL (140-440); RED BLOOD COUNT 5.04 10^6/ul (4.70-6.10); RED CELL DISTRIBUTION WIDTH 13.3 % (11.5-14.5); UNCORRECTED WBC 9.4 10^3/ul (4.8-10.8); WHITE BLOOD COUNT 9.4 10^3/ul (4.8-10.8)
[2016-10-27 07:22] LABS: CONDITION 1; LH ANALYZER COMMENTS 1
[2016-10-27 07:29] LABS: POTASSIUM 4.1 mmol/L (3.5-5.1)
[2016-10-27 07:30] VITALS: BP 148/88; RESP 18
[2016-10-27 07:31] LABS: ALBUMIN/GLOBULIN RATIO 1.11; BILIRUBIN,INDIRECT 0.2 mg/dl (0-1.1); BILIRUBIN,TOTAL 0.2 mg/dl (0.2-1.3); CREATININE 0.79 mg/dl (0.61-1.24); TOTAL PROTEIN 7.6 g/dl (6.1-8.1)
[2016-10-27 07:32] LABS: CALCIUM 8.9 mg/dl (8.4-10.2)
[2016-10-27] MEDS: INSULIN ASPART [NOVOLOG] 3 ML PEN SC SCH ×4 (07:35→21:00)
[2016-10-27] MEDS: FAMOTIDINE 20 MG TAB PO SCH (08:11)
[2016-10-27] MEDS: DEXAMETHASONE 4 MG/ML 1 ML INJ IV SCH ×2 (08:11→21:45)
[2016-10-27] MEDS: DOCUSATE SODIUM 100 MG CAP PO SCH ×2 (08:11→21:13)
[2016-10-27] MEDS: LISINOPRIL 20 MG TAB PO SCH (08:11)
[2016-10-27] MEDS: AMLODIPINE 5 MG TAB PO SCH (08:11)
[2016-10-27] MEDS: CARISOPRODOL 350 MG TAB PO PRN ×2 (08:17→17:41)
[2016-10-27] MEDS: GABAPENTIN 100 MG CAP PO SCH ×2 (12:08→21:12)
[2016-10-27] MEDS: oxyCODONE (CR) 10 MG TAB [oxyCONTIN] PO SCH ×2 (12:08→21:10)
--- NOTE | 2016-10-27 17:30 | HP ---
Date/Time of Note Date/Time of Note DATE: 10/27/16 TIME: 17:29 Assessment/Plan VTE Prophylaxis VTE Prophylaxis Intervention: contraindicated, SCD's Lines/Catheters IV Catheter Type (from Nrsg): Saline Lock Urinary Cath still in place: No Assessment/Plan Assessment/Plan 51 yo Male with. 1. Hypertension. 2. Diabetes mellitus. 3. Severe cervical stenosis with cord compression at C4-5. S/p posterior cervical laminectomy C3 through C7 on 10/23/2016 Will cont Med Rx from [facility] for HTN and DM cont Oral Pain and IV Pain Rx as needed Appreciate rehabilitation and care at [facility]. Cardiac/ADA Diet. BP and FSBG very well controlled. HPI/ROS Admit Date/Time Admit Date/Time Oct 26, 2016 at 14:30 Hx of Present Illness 50-year-old male with Chronic history of hypertension and diabetes mellitus, who was noted to have severe increasing right upper extremity weakness in addition to impaired balance and found to have severe cervical stenosis with cord compression at C4-5. The patient S/p posterior cervical laminectomy C3 through C7 on 10/23/2016 and postoperative course has been notable for significant pain, constipation and impaired mobility. Pt was then discharged from [facility] and transferred to the rehabilitation unit for rehab care. ROS all other systems reviewed and are negative. PMH/Family/Social Past Medical History PAST MEDICAL HISTORY: 1. Hypertension. 2. Diabetes mellitus. CURRENT MEDICATIONS: 1. Norvasc 5 mg p.o. daily. 2. Lipitor 40 mg p.o. at bedtime. 3. Decadron IV. 4. Insulin sliding scale. 5. Colace 100 mg b.i.d. 6. Pepcid 20 mg p.o. daily. 7. [place] p.r.n. 8. Zestril 40 mg p.o. daily. 9. Morphine p.r.n. 10. Senokot 1 tab p.o. b.i.d. ALLERGIES: No known drug allergies. Medical History: hypertension, other Past Surgical History Past Surgical Hx: other Social History Alcohol Use: none Smoking Status: Never smoker Drug Use: none Exam/Review of Systems Vital Signs Vitals Vital Signs Date Time Temp Pulse Resp B/P Pulse Ox O2 Delivery O2 Flow Rate FiO2 10/27/16 07:30 97.7 65 18 148/88 95 10/26/16 20:00 Room Air Intake and Output 10/26/16 10/26/16 10/27/16 15:00 23:00 07:00 Intake Total 240 ml 600 ml Output Total 120 ml 600 ml Balance 120 ml 0 ml Exam Constitutional: alert, oriented, No distress Psych: No anxiety Head: atraumatic, normocephalic, other (Cervical collar) Eyes: EOMI, nl conjunctiva ENMT: mucosa pink and moist Neck: No jvd Respiratory: clear to auscultation, No diminished breath sounds, No labored breathing Cardiovascular: regular rate and rhythm, No edema Gastrointestinal: non-tender, soft Extremities: No pitting pedal edema Neurological: PHARMACY TEACHER II-XII intact, nl mental status, nl speech, No confused, No lethargic Skin: nl turgor, No diaphoresis Labs Result Diagram: 10/27/16 0610 10/27/16 0610 Medications Medications Current Medications Diagnostic Test (Pha) (Accucheck) 1 ea 02 XX Last administered on 10/27/16 02: 00; Admin Dose 1 EA; Start 10/27/16 at 02:00 Amlodipine Besylate (Norvasc) 5 mg DAILY PO Last administered on 10/27/16 08: 11; Admin Dose 5 MG; Start 10/27/16 at 09:00 Atorvastatin Calcium (Lipitor) 40 mg QHS PO Last administered on 10/26/16 20: 09; Admin Dose 40 MG; Start 10/26/16 at 21:00 Dexamethasone (Decadron) 4 mg Q12 IV Last administered on 10/27/16 08:11; Admin Dose 4 MG; Start 10/26/16 at 21:00 Docusate Sodium (Colace) 100 mg BID PO Last administered on 10/27/16 08:11; Admin Dose 100 MG; Start 10/26/16 at 21:00 Famotidine (Pepcid) 20 mg DAILY PO Last administered on 10/27/16 08:11; Admin Dose 20 MG; Start 10/27/16 at 09:00 Acetaminophen/ Hydrocodone Bitart ([place] (5/325)) 1 tab Q4H PRN PO MILD PAIN LEVEL 1-3; Start 10/26/16 at 15:00 Lisinopril (Zestril) 40 mg DAILY PO Last administered on 10/27/16 08:11; Admin Dose 40 MG; Start 10/27/16 at 09:00 Morphine Sulfate (morphine) 1 mg Q2H PRN IV mild; Start 10/26/16 at 15:00 Morphine Sulfate (morphine) 2 mg Q2H PRN IV PAIN LEVEL 1-5 Last administered on 10/27/16 10:07; Admin Dose 2 MG; Start 10/26/16 at 15:00 Morphine Sulfate (morphine) 4 mg Q4H PRN IV SEVERE PAIN LEVEL 7-10; Start 10/26 at 15:00 Ondansetron HCl (Zofran Inj) 4 mg Q6H PRN IV NAUSEA AND/OR VOMITING; Start at 15:00 Senna (Senokot) 1 tab BID PRN PO CONSTIPATION; Start 10/26/16 at 15:00 Bisacodyl (Dulcolax Supp) 10 mg DAILY PRN [place] CONSTIPATION; Start 10/26/16 at 15 :00 Magnesium Hydroxide (Milk Of Mag) 30 ml BID PRN PO CONSTIPATION; Start at 15:00 Lactulose (Enulose) 20 gm DAILY PRN PO CONSTIPATION; Start 10/26/16 at 15:00 Miscellaneous Information 1 ea NOTE XX ; Start 10/26/16 at 15:00 Glucose (Glutose) 15 gm Q15M PRN PO DECREASED GLUCOSE; Start 10/26/16 at 15:00 Glucose (Glutose) 22.5 gm Q15M PRN PO DECREASED GLUCOSE; Start 10/26/16 at 15: 00 Dextrose (D50w Syringe) 25 ml Q15M PRN IV DECREASED GLUCOSE; Start 10/26/16 at 15:00 Dextrose (D50w Syringe) 50 ml Q15M PRN IV DECREASED GLUCOSE; Start 10/26/16 at 15:00 Glucagon (Glucagen) 1 mg Q15M PRN IM DECREASED GLUCOSE; Start 10/26/16 at 15:00 Glucose (Glutose) 15 gm Q15M PRN BUCCAL DECREASED GLUCOSE; Start 10/26/16 at 15 :00 Carisoprodol (Soma) 350 mg Q8H PRN PO MUSCLE SPASMS Last administered on 08:17; Admin Dose 350 MG; Start 10/26/16 at 17:00 Senna (Senokot) 2 tab BID PO ; Start 10/27/16 at 21:00 Oxycodone HCl (Oxycontin) 10 mg TID PO Last administered on 10/27/16 12:08; Admin Dose 10 MG; Start 10/27/16 at 13:00 Gabapentin (Neurontin) 100 mg BID PO Last administered on 10/27/16 12:08; Admin Dose 100 MG; Start 10/27/16 at 12:00 CHRISTINA VAUGHAN MD Oct 27, 2016 17:30
[2016-10-27] MEDS: HYDROCODONE/APAP (5/325) TAB PO PRN (17:41)
--- NOTE | 2016-10-27 18:35 | CONS ---
DATE OF ADMISSION: 10/26/2016 DATE OF CONSULTATION: 10/27/2016 DATE OF CONSULTATION: 10/27/2016 REHABILITATION IMPAIRMENT CATEGORY: Severe cervical stenosis with cord compression at C4 through C5 , status post cervical decompressive laminectomy. ACTIVE COMORBIDITIES: 1. Acute pain syndrome. 2. Hypertension. 3. Diabetes mellitus. 4. Impairments in self-care and mobility. HISTORY OF PRESENT ILLNESS: The patient is a pleasant 50-year-old right-handed gentleman with a his tory of hypertension and diabetes mellitus, who was noted to have severe increasing right upper extr emity weakness in addition to impaired balance. Workup revealed severe cervical stenosis with cord compression at C4-5. The patient did receive conservative treatment initially, including epidural i njections and physical therapy; however, was noted to still has significant pain and weakness. The patient did undergo posterior cervical laminectomy C3 through C7 on 10/23/2016. The patient's posto perative course has been notable for significant pain in addition to impairments in self-care and mo bility, in addition to constipation. The patient has been cleared to transfer to the rehabilitation unit for comprehensive interdisciplinary rehab care. FUNCTIONAL HISTORY: Prior to recent events, he was independent in self-care tasks and mobility. Cu rrently, he requires moderate to maximal assist for self-care activities, minimal to moderate assist for mobility tasks. I have reviewed the preadmission screen, and the patient's current functional status is consistent w ith the preadmission screen. SOCIAL HISTORY: The patient hopes to return home upon discharge. PAST MEDICAL HISTORY: 1. Hypertension. 2. Diabetes mellitus. CURRENT MEDICATIONS: 1. Norvasc 5 mg p.o. daily. 2. Lipitor 40 mg p.o. at bedtime. 3. Decadron IV. 4. Insulin sliding scale. 5. Colace 100 mg b.i.d. 6. Pepcid 20 mg p.o. daily. 7. Louise p.r.n. 8. Zestril 40 mg p.o. daily. 9. Morphine p.r.n. 10. Senokot 1 tab p.o. b.i.d. ALLERGIES: No known drug allergies. PHYSICAL EXAMINATION: VITAL SIGNS: The patient is currently afebrile with stable vital signs. HEENT: Extraocular motion intact. Oropharynx clear. NECK: Supple. LUNGS: Clear anteriorly. CARDIAC: S1, S2. ABDOMEN: Soft, nontender, positive bowel sounds. NEUROLOGIC: He is awake, alert, and oriented x3, can follow simple 1-step commands. Cranial nerves are grossly intact. He has good strength in the left upper extremity. He has 3+ to 4- strength in the right upper extremity. Has antigravity strength in bilateral lower extremities. PLAN: The patient has been admitted for comprehensive interdisciplinary acute rehab and is anticipa stan to tolerate 3 hours of daily therapy in divided doses for at least 5/7 days a week. The treatme nt plan will include: 1. Physical therapy to focus on bed mobility, transfers, and household ambulation with the goal of having patient reach standby assist level. 2. Occupational therapy to focus on hygiene, grooming, dressing, bathing, and toileting activities with the goal of having the patient reach standby assist level. 3. Rehabilitation nursing for carryover of therapeutic interventions, the goal of continent of windy l and bladder, and the goal of pain adequately managed on oral medications. ESTIMATED LENGTH OF STAY: 14 days. DISPOSITION GOAL: Home. I acknowledge that I have performed a full physical examination on this patient within 24 hours of a dmission to the rehabilitation unit and believe the patient is a good candidate for comprehensive in terdisciplinary rehab care and is anticipated to make reasonable goals in a reasonable period of neto e as outlined above. REHABILITATION BARRIER: Pain. INTERVENTION FOR BARRIER: Comprehensive interdisciplinary approach. Dictated By: CORRIE BAGLEY/PANCHO Conf#: [id number] DID#: [id number]
[2016-10-27 20:16] VITALS: BP 109/72; RESP 18
[2016-10-27] MEDS: SENNA TAB PO SCH (21:11)
[2016-10-27] MEDS: ATORVASTATIN 40 MG TAB PO SCH (21:13)
[2016-10-28] MEDS: HYDROCODONE/APAP (5/325) TAB PO PRN (01:07)
[2016-10-28] MEDS: CARISOPRODOL 350 MG TAB PO PRN ×3 (01:09→22:05)
[2016-10-28] MEDS: ACCUCHECK XX SCH (02:00)
[2016-10-28] MEDS: INSULIN ASPART [NOVOLOG] 3 ML PEN SC SCH ×4 (07:35→21:00)
[2016-10-28 08:59] VITALS: BP 123/80; RESP 18
[2016-10-28] MEDS: SENNA TAB PO SCH ×2 (09:00→20:45)
[2016-10-28] MEDS: DOCUSATE SODIUM 100 MG CAP PO SCH ×2 (09:00→20:44)
[2016-10-28] MEDS: DEXAMETHASONE 4 MG/ML 1 ML INJ IV SCH ×2 (09:01→20:44)
[2016-10-28] MEDS: GABAPENTIN 100 MG CAP PO SCH ×2 (09:02→20:44)
[2016-10-28] MEDS: AMLODIPINE 5 MG TAB PO SCH (09:02)
[2016-10-28] MEDS: FAMOTIDINE 20 MG TAB PO SCH (09:03)
[2016-10-28] MEDS: LISINOPRIL 20 MG TAB PO SCH (09:03)
[2016-10-28] MEDS: oxyCODONE (CR) 10 MG TAB [oxyCONTIN] PO SCH ×3 (09:03→20:44)
--- NOTE | 2016-10-28 11:25 | CONS ---
Date/Time of Note Date/Time of Note DATE: 10/28/16 TIME: 11:24 Consult Date/Type/Reason Admit Date/Time Oct 26, 2016 at 14:30 Initial Consult Date Subjective Pain under much better control Objective min assist ambulation Vital Signs Date Time Temp Pulse Resp B/P Pulse Ox O2 Delivery O2 Flow Rate FiO2 10/28/16 08:59 98.0 73 18 123/80 97 10/26/16 20:00 Room Air Intake and Output 10/27/16 10/27/16 10/28/16 15:00 23:00 07:00 Intake Total 360 ml 1000 ml Output Total 260 ml 700 ml Balance 100 ml 300 ml Results/Medications Result Diagram: 10/27/16 0610 10/27/16 0610 Results 24 hrs Laboratory Tests Test 10/27/16 12:00 10/27/16 17:18 10/27/16 21:04 10/28/16 07:31 Bedside Glucose 164 168 167 154 Medications Current Medications Diagnostic Test (Pha) (Accucheck) 1 ea 02 XX Last administered on 10/27/16 02: 00; Admin Dose 1 EA; Start 10/27/16 at 02:00 Amlodipine Besylate (Norvasc) 5 mg DAILY PO Last administered on 10/28/16 09: 02; Admin Dose 5 MG; Start 10/27/16 at 09:00 Atorvastatin Calcium (Lipitor) 40 mg QHS PO Last administered on 10/27/16 21: 13; Admin Dose 40 MG; Start 10/26/16 at 21:00 Dexamethasone (Decadron) 4 mg Q12 IV Last administered on 10/28/16 09:01; Admin Dose 4 MG; Start 10/26/16 at 21:00 Docusate Sodium (Colace) 100 mg BID PO Last administered on 10/27/16 21:13; Admin Dose 100 MG; Start 10/26/16 at 21:00 Famotidine (Pepcid) 20 mg DAILY PO Last administered on 10/28/16 09:03; Admin Dose 20 MG; Start 10/27/16 at 09:00 Acetaminophen/ Hydrocodone Bitart ([place] (5/325)) 1 tab Q4H PRN PO MILD PAIN LEVEL 1-3 Last administered on 10/28/16 01:07; Admin Dose 1 TAB; Start at 15:00 Lisinopril (Zestril) 40 mg DAILY PO Last administered on 10/28/16 09:03; Admin Dose 40 MG; Start 10/27/16 at 09:00 Morphine Sulfate (morphine) 1 mg Q2H PRN IV mild Last administered on 07:22; Admin Dose 1 MG; Start 10/26/16 at 15:00 Morphine Sulfate (morphine) 2 mg Q2H PRN IV PAIN LEVEL 1-5 Last administered on 10/27/16 10:07; Admin Dose 2 MG; Start 10/26/16 at 15:00 Morphine Sulfate (morphine) 4 mg Q4H PRN IV SEVERE PAIN LEVEL 7-10; Start 10/26 at 15:00 Ondansetron HCl (Zofran Inj) 4 mg Q6H PRN IV NAUSEA AND/OR VOMITING; Start at 15:00 Senna (Senokot) 1 tab BID PRN PO CONSTIPATION; Start 10/26/16 at 15:00 Bisacodyl (Dulcolax Supp) 10 mg DAILY PRN [place] CONSTIPATION; Start 10/26/16 at 15 :00 Magnesium Hydroxide (Milk Of Mag) 30 ml BID PRN PO CONSTIPATION; Start at 15:00 Lactulose (Enulose) 20 gm DAILY PRN PO CONSTIPATION Last administered on 21:51; Admin Dose 20 GM; Start 10/26/16 at 15:00 Miscellaneous Information 1 ea NOTE XX ; Start 10/26/16 at 15:00 Glucose (Glutose) 15 gm Q15M PRN PO DECREASED GLUCOSE; Start 10/26/16 at 15:00 Glucose (Glutose) 22.5 gm Q15M PRN PO DECREASED GLUCOSE; Start 10/26/16 at 15: 00 Dextrose (D50w Syringe) 25 ml Q15M PRN IV DECREASED GLUCOSE; Start 10/26/16 at 15:00 Dextrose (D50w Syringe) 50 ml Q15M PRN IV DECREASED GLUCOSE; Start 10/26/16 at 15:00 Glucagon (Glucagen) 1 mg Q15M PRN IM DECREASED GLUCOSE; Start 10/26/16 at 15:00 Glucose (Glutose) 15 gm Q15M PRN BUCCAL DECREASED GLUCOSE; Start 10/26/16 at 15 :00 Carisoprodol (Soma) 350 mg Q8H PRN PO MUSCLE SPASMS Last administered on 01:09; Admin Dose 350 MG; Start 10/26/16 at 17:00 Senna (Senokot) 2 tab BID PO Last administered on 10/27/16 21:11; Admin Dose 2 TAB; Start 10/27/16 at 21:00 Oxycodone HCl (Oxycontin) 10 mg TID PO Last administered on 10/28/16 09:03; Admin Dose 10 MG; Start 10/27/16 at 13:00 Gabapentin (Neurontin) 100 mg BID PO Last administered on 10/28/16 09:02; Admin Dose 100 MG; Start 10/27/16 at 12:00 Assessment/Plan Additional Assessment/Plan Rehab- Severe cervical stenosis with cord compression at C4 through C5, status post cervical decompressive laminectomy. Overall good steady gains with treatment plan Acute pain syndrome- improved on current regime Hypertension. Diabetes mellitus. CORRIE RAMOS MD Oct 28, 2016 11:25
--- NOTE | 2016-10-28 12:59 | PN ---
Date/Time of Note Date/Time of Note DATE: 10/28/16 TIME: 12:58 Assessment/Plan VTE Prophylaxis VTE Prophylaxis Intervention: contraindicated, SCD's Lines/Catheters IV Catheter Type (from Nrsg): Saline Lock Urinary Cath still in place: No Assessment/Plan Assessment/Plan 51 yo Male with. 1. Hypertension. 2. Diabetes mellitus. 3. Severe cervical stenosis with cord compression at C4-5. S/p posterior cervical laminectomy C3 through C7 on 10/23/2016 4. Constipation Will cont Med Rx from [facility] for HTN and DM cont Oral Pain and IV Pain Rx as needed Appreciate rehabilitation and care at [facility]. Cardiac/ADA Diet. Cont Stool softeners. BP and FSBG very well controlled. Subjective 24 Hr Interval Summary Free Text/Dictation Working with PT, Still with pain, improved with Rx. Exam/Review of Systems Vital Signs Vitals Vital Signs Date Time Temp Pulse Resp B/P Pulse Ox O2 Delivery O2 Flow Rate FiO2 10/28/16 08:59 98.0 73 18 123/80 97 10/26/16 20:00 Room Air Intake and Output 10/27/16 10/27/16 10/28/16 15:00 23:00 07:00 Intake Total 360 ml 1000 ml Output Total 260 ml 700 ml Balance 100 ml 300 ml Exam Constitutional: No distress ENMT: mucosa pink and moist Neck: No jvd Respiratory: clear to auscultation Cardiovascular: regular rate and rhythm, No edema Gastrointestinal: non-tender, soft Skin: No diaphoresis Results Result Diagram: 10/27/16 0610 10/27/16 0610 Results 24 hrs Laboratory Tests Test 10/27/16 17:18 10/27/16 21:04 10/28/16 07:31 10/28/16 11:25 Bedside Glucose 168 167 154 147 Medications Medications Current Medications Diagnostic Test (Pha) (Accucheck) 1 ea 02 XX Last administered on 10/27/16 02: 00; Admin Dose 1 EA; Start 10/27/16 at 02:00 Amlodipine Besylate (Norvasc) 5 mg DAILY PO Last administered on 10/28/16 09: 02; Admin Dose 5 MG; Start 10/27/16 at 09:00 Atorvastatin Calcium (Lipitor) 40 mg QHS PO Last administered on 10/27/16 21: 13; Admin Dose 40 MG; Start 10/26/16 at 21:00 Dexamethasone (Decadron) 4 mg Q12 IV Last administered on 10/28/16 09:01; Admin Dose 4 MG; Start 10/26/16 at 21:00 Docusate Sodium (Colace) 100 mg BID PO Last administered on 10/27/16 21:13; Admin Dose 100 MG; Start 10/26/16 at 21:00 Famotidine (Pepcid) 20 mg DAILY PO Last administered on 10/28/16 09:03; Admin Dose 20 MG; Start 10/27/16 at 09:00 Acetaminophen/ Hydrocodone Bitart ([place] (5/325)) 1 tab Q4H PRN PO MILD PAIN LEVEL 1-3 Last administered on 10/28/16 01:07; Admin Dose 1 TAB; Start at 15:00 Lisinopril (Zestril) 40 mg DAILY PO Last administered on 10/28/16 09:03; Admin Dose 40 MG; Start 10/27/16 at 09:00 Morphine Sulfate (morphine) 1 mg Q2H PRN IV mild Last administered on 07:22; Admin Dose 1 MG; Start 10/26/16 at 15:00 Morphine Sulfate (morphine) 2 mg Q2H PRN IV PAIN LEVEL 1-5 Last administered on 10/27/16 10:07; Admin Dose 2 MG; Start 10/26/16 at 15:00 Morphine Sulfate (morphine) 4 mg Q4H PRN IV SEVERE PAIN LEVEL 7-10; Start 10/26 at 15:00 Ondansetron HCl (Zofran Inj) 4 mg Q6H PRN IV NAUSEA AND/OR VOMITING; Start at 15:00 Senna (Senokot) 1 tab BID PRN PO CONSTIPATION; Start 10/26/16 at 15:00 Bisacodyl (Dulcolax Supp) 10 mg DAILY PRN [place] CONSTIPATION; Start 10/26/16 at 15 :00 Magnesium Hydroxide (Milk Of Mag) 30 ml BID PRN PO CONSTIPATION; Start at 15:00 Lactulose (Enulose) 20 gm DAILY PRN PO CONSTIPATION Last administered on 21:51; Admin Dose 20 GM; Start 10/26/16 at 15:00 Miscellaneous Information 1 ea NOTE XX ; Start 10/26/16 at 15:00 Glucose (Glutose) 15 gm Q15M PRN PO DECREASED GLUCOSE; Start 10/26/16 at 15:00 Glucose (Glutose) 22.5 gm Q15M PRN PO DECREASED GLUCOSE; Start 10/26/16 at 15: 00 Dextrose (D50w Syringe) 25 ml Q15M PRN IV DECREASED GLUCOSE; Start 10/26/16 at 15:00 Dextrose (D50w Syringe) 50 ml Q15M PRN IV DECREASED GLUCOSE; Start 10/26/16 at 15:00 Glucagon (Glucagen) 1 mg Q15M PRN IM DECREASED GLUCOSE; Start 10/26/16 at 15:00 Glucose (Glutose) 15 gm Q15M PRN BUCCAL DECREASED GLUCOSE; Start 10/26/16 at 15 :00 Carisoprodol (Soma) 350 mg Q8H PRN PO MUSCLE SPASMS Last administered on 12:24; Admin Dose 350 MG; Start 10/26/16 at 17:00 Senna (Senokot) 2 tab BID PO Last administered on 10/27/16 21:11; Admin Dose 2 TAB; Start 10/27/16 at 21:00 Oxycodone HCl (Oxycontin) 10 mg TID PO Last administered on 10/28/16 12:21; Admin Dose 10 MG; Start 10/27/16 at 13:00 Gabapentin (Neurontin) 100 mg BID PO Last administered on 10/28/16 09:02; Admin Dose 100 MG; Start 10/27/16 at 12:00 CHRISTINA VAUGHAN MD Oct 28, 2016 12:59
[2016-10-28] MEDS: BACLOFEN 10 MG TAB PO SCH (20:44)
[2016-10-28] MEDS: ATORVASTATIN 40 MG TAB PO SCH (20:44)
[2016-10-28 20:53] VITALS: BP 138/93; RESP 18
[2016-10-29] MEDS: ACCUCHECK XX SCH (02:00)
[2016-10-29] MEDS: HYDROCODONE/APAP (5/325) TAB PO PRN ×6 (02:53→17:32)
[2016-10-29] MEDS: INSULIN ASPART [NOVOLOG] 3 ML PEN SC SCH ×4 (07:29→20:48)
[2016-10-29 08:42] VITALS: BP 128/97; RESP 18
[2016-10-29] MEDS: DEXAMETHASONE 4 MG/ML 1 ML INJ IV SCH ×2 (08:56→20:44)
[2016-10-29] MEDS: DOCUSATE SODIUM 100 MG CAP PO SCH ×2 (08:57→20:45)
[2016-10-29] MEDS: BACLOFEN 10 MG TAB PO SCH ×3 (08:57→20:47)
[2016-10-29] MEDS: FAMOTIDINE 20 MG TAB PO SCH (08:58)
[2016-10-29] MEDS: SENNA TAB PO SCH ×2 (08:58→20:46)
[2016-10-29] MEDS: AMLODIPINE 5 MG TAB PO SCH (08:58)
[2016-10-29] MEDS: oxyCODONE (CR) 10 MG TAB [oxyCONTIN] PO SCH ×3 (08:59→20:47)
[2016-10-29] MEDS: GABAPENTIN 100 MG CAP PO SCH ×3 (09:00→20:45)
[2016-10-29] MEDS: CARISOPRODOL 350 MG TAB PO PRN (09:04)
[2016-10-29] MEDS: LISINOPRIL 20 MG TAB PO SCH (09:04)
--- NOTE | 2016-10-29 10:01 | RADRPT ---
PROCEDURE: XR Chest. CLINICAL INDICATION: chest pain TECHNIQUE: Single frontal view of the chest was obtained COMPARISON: None FINDINGS: The heart and mediastinum are within normal limits. There are mild right lower lobe linear atelectatic changes. The lungs are otherwise clear. There is no pleural effusion or pneumothorax. RPTAT: AA IMPRESSION: Mild right lower lobe linear atelectatic changes. .Valerio Mendoza MD, MD Date Time Electronically viewed and signed by .Valerio Mendoza MD, on 10/29/2016 10:01 .S/
--- NOTE | 2016-10-29 10:58 | CONS ---
Date/Time of Note Date/Time of Note DATE: 10/29/16 TIME: 10:54 Consult Date/Type/Reason Admit Date/Time Oct 26, 2016 at 14:30 Subjective Patient reports pain overall improved, and R UE strength improving, however when up for therapy today he noted severe spasm, eye pain, and left sided chest pain. He denied shortness of breath or worsening numbness. He later noted a "migraine" Objective Pulm- CTA Card- S1S1 Abd- soft Neuro- good strength in L UE and Bilat LE, and slightly improved R UE strength Vital Signs Date Time Temp Pulse Resp B/P Pulse Ox O2 Delivery O2 Flow Rate FiO2 10/29/16 08:42 98.0 68 18 128/97 96 10/26/16 20:00 Room Air Intake and Output 10/28/16 10/28/16 10/29/16 14:59 22:59 06:59 Intake Total 480 ml 240 ml 600 ml Output Total 150 ml 700 ml Balance 330 ml 240 ml -100 ml Results/Medications Result Diagram: 10/27/16 0610 10/27/16 0610 Results 24 hrs Laboratory Tests Test 10/28/16 11:25 10/28/16 17:09 10/28/16 20:28 10/29/16 07:27 Bedside Glucose 147 152 196 129 Medications Current Medications Diagnostic Test (Pha) (Accucheck) 1 ea 02 XX Last administered on 10/27/16 02: 00; Admin Dose 1 EA; Start 10/27/16 at 02:00 Amlodipine Besylate (Norvasc) 5 mg DAILY PO Last administered on 10/29/16 08: 58; Admin Dose 5 MG; Start 10/27/16 at 09:00 Atorvastatin Calcium (Lipitor) 40 mg QHS PO Last administered on 10/28/16 20: 44; Admin Dose 40 MG; Start 10/26/16 at 21:00 Dexamethasone (Decadron) 4 mg Q12 IV Last administered on 10/29/16 08:56; Admin Dose 4 MG; Start 10/26/16 at 21:00 Docusate Sodium (Colace) 100 mg BID PO Last administered on 10/29/16 08:57; Admin Dose 100 MG; Start 10/26/16 at 21:00 Famotidine (Pepcid) 20 mg DAILY PO Last administered on 10/29/16 08:58; Admin Dose 20 MG; Start 10/27/16 at 09:00 Acetaminophen/ Hydrocodone Bitart ([place] (5/325)) 1 tab Q4H PRN PO MILD PAIN LEVEL 1-3 Last administered on 10/29/16 10:32; Admin Dose 1 TAB; Start at 15:00 Lisinopril (Zestril) 40 mg DAILY PO Last administered on 10/29/16 09:04; Admin Dose 40 MG; Start 10/27/16 at 09:00 Morphine Sulfate (morphine) 1 mg Q2H PRN IV mild Last administered on 07:22; Admin Dose 1 MG; Start 10/26/16 at 15:00 Morphine Sulfate (morphine) 2 mg Q2H PRN IV PAIN LEVEL 1-5 Last administered on 10/27/16 10:07; Admin Dose 2 MG; Start 10/26/16 at 15:00 Morphine Sulfate (morphine) 4 mg Q4H PRN IV SEVERE PAIN LEVEL 7-10; Start 10/26 at 15:00 Ondansetron HCl (Zofran Inj) 4 mg Q6H PRN IV NAUSEA AND/OR VOMITING; Start at 15:00 Senna (Senokot) 1 tab BID PRN PO CONSTIPATION; Start 10/26/16 at 15:00 Bisacodyl (Dulcolax Supp) 10 mg DAILY PRN [place] CONSTIPATION; Start 10/26/16 at 15 :00 Magnesium Hydroxide (Milk Of Mag) 30 ml BID PRN PO CONSTIPATION; Start at 15:00 Lactulose (Enulose) 20 gm DAILY PRN PO CONSTIPATION Last administered on 21:51; Admin Dose 20 GM; Start 10/26/16 at 15:00 Miscellaneous Information 1 ea NOTE XX ; Start 10/26/16 at 15:00 Glucose (Glutose) 15 gm Q15M PRN PO DECREASED GLUCOSE; Start 10/26/16 at 15:00 Glucose (Glutose) 22.5 gm Q15M PRN PO DECREASED GLUCOSE; Start 10/26/16 at 15: 00 Dextrose (D50w Syringe) 25 ml Q15M PRN IV DECREASED GLUCOSE; Start 10/26/16 at 15:00 Dextrose (D50w Syringe) 50 ml Q15M PRN IV DECREASED GLUCOSE; Start 10/26/16 at 15:00 Glucagon (Glucagen) 1 mg Q15M PRN IM DECREASED GLUCOSE; Start 10/26/16 at 15:00 Glucose (Glutose) 15 gm Q15M PRN BUCCAL DECREASED GLUCOSE; Start 10/26/16 at 15 :00 Carisoprodol (Soma) 350 mg Q8H PRN PO MUSCLE SPASMS Last administered on 09:04; Admin Dose 350 MG; Start 10/26/16 at 17:00 Senna (Senokot) 2 tab BID PO Last administered on 10/29/16 08:58; Admin Dose 2 TAB; Start 10/27/16 at 21:00 Oxycodone HCl (Oxycontin) 10 mg TID PO Last administered on 10/29/16 08:59; Admin Dose 10 MG; Start 10/27/16 at 13:00 Gabapentin (Neurontin) 100 mg TID PO Last administered on 10/29/16 09:00; Admin Dose 100 MG; Start 10/28/16 at 21:00 Baclofen (Lioresal) 10 mg TID PO Last administered on 10/29/16 08:57; Admin Dose 10 MG; Start 10/28/16 at 21:00 Assessment/Plan Additional Assessment/Plan Rehab- Severe cervical stenosis with cord compression at C4 through C5, status post cervical decompressive laminectomy. Overall good steady gains with treatment plan, however given new complaints , will hold OOB therapy while w/u in progress. Will also notify NS CP- likely muscular, but will order CXR and EKG PALMER and vision changes- will order Head CT Acute pain syndrome- improved on current regime Hypertension. Diabetes mellitus. CORRIE RAMOS MD Oct 29, 2016 10:58
--- NOTE | 2016-10-29 11:51 | RADRPT ---
PROCEDURE: CT Brain without contrast. CLINICAL INDICATION: Severe headache and blurry vision. Weakness. TECHNIQUE: A CT of the brain without contrast was performed utilizing axial sections from the skul l base through the vertex. The patient was scanned without intravenous contrast enhancement. Sagitta l and coronal reformatted images were obtained using the data from the axial images. Total exam DLP is 630.20 mGy-cm. CTDIvol is 44.26 mGy. One or more of the following dose reduction techniques we re used: Automated exposure control, adjustment of the mA and/or kV according to patient size, use o f iterative reconstruction technique. COMPARISON: None available FINDINGS: There is normal gottlieb-white matter differentiation. There is a patent cavum septum pellucidum, a normal variant. The ventricles and cisterns are otherw ise normal. There is no intracranial hemorrhage or space-occupying lesion. There is no skull fracture or lytic lesion. IMPRESSION: 1. Unremarkable noncontrast CT scan of the brain. 2. No intracranial hemorrhage. RPTAT: QQ .Robert Goodman MD, MD Date Time Electronically viewed and signed by .Robert Goodman MD, on 10/29/2016 11:51 .R/
--- NOTE | 2016-10-29 14:37 | PN ---
Date/Time of Note Date/Time of Note DATE: 10/29/16 TIME: 14:35 Assessment/Plan VTE Prophylaxis VTE Prophylaxis Intervention: contraindicated, SCD's Lines/Catheters IV Catheter Type (from Nrsg): Saline Lock Urinary Cath still in place: No Assessment/Plan Assessment/Plan 51 yo Male with. 1. Hypertension. 2. Diabetes mellitus. 3. Severe cervical stenosis with cord compression at C4-5. S/p posterior cervical laminectomy C3 through C7 on 10/23/2016 4. Constipation- Resolved 5. Musculoskeletal Chest Pain, Non Cardiac 6. Rt Lower Lung Atelectasis 7. Urine Culture Enterococcus. EKG ( NO ischemic Changes) and CXR Reviewed, Repeat EKG now. Incentive Spirometry Will order Cipro Daily x 3 day. cont Oral Pain and IV Pain Rx as needed Appreciate rehabilitation and care at [facility]. Cardiac/ADA Diet. Cont Stool softeners. BP and FSBG very well controlled. Subjective 24 Hr Interval Summary Free Text/Dictation Chest Pain this am, Now resolved, Pt had EKG NSR, No STEs, CXR ordered. No SOB, Also complained PALMER S/p CT Head Constitutional: No requiring O2 Exam/Review of Systems Vital Signs Vitals Vital Signs Date Time Temp Pulse Resp B/P Pulse Ox O2 Delivery O2 Flow Rate FiO2 10/29/16 08:42 98.0 68 18 128/97 96 10/26/16 20:00 Room Air Intake and Output 10/28/16 10/28/16 10/29/16 15:00 23:00 07:00 Intake Total 480 ml 240 ml 600 ml Output Total 150 ml 700 ml Balance 330 ml 240 ml -100 ml Exam Constitutional: alert, oriented, No distress Psych: No anxiety Head: atraumatic, normocephalic Eyes: EOMI ENMT: mucosa pink and moist Neck: No jvd Respiratory: clear to auscultation, No labored breathing Cardiovascular: regular rate and rhythm, No edema Gastrointestinal: bowel sounds, non-tender, soft, No distended, No rebound or guarding Extremities: edema Neurological: SECURITIES RESEARCH ANALYST II-XII intact, nl mental status, No confused, No lethargic Skin: nl turgor, No diaphoresis Results Microbiology URINE CULTURE Final Organism 1 ENTEROCOCCUS SPECIES COLONY COUNT 10,000 - 20,000 CFU/ml ENT SPS M.I.C. RX --------- --- AMPICILLIN <=2 S CIPROFLOXACIN 1 S PENICILLIN-G 2 S VANCOMYCIN 1 S Result Diagram: 10/27/16 0610 10/27/16 0610 Results 24 hrs Laboratory Tests Test 10/28/16 17:09 10/28/16 20:28 10/29/16 07:27 10/29/16 12:05 Bedside Glucose 152 196 129 203 Medications Medications Current Medications Diagnostic Test (Pha) (Accucheck) 1 ea 02 XX Last administered on 10/27/16 02: 00; Admin Dose 1 EA; Start 10/27/16 at 02:00 Amlodipine Besylate (Norvasc) 5 mg DAILY PO Last administered on 10/29/16 08: 58; Admin Dose 5 MG; Start 10/27/16 at 09:00 Atorvastatin Calcium (Lipitor) 40 mg QHS PO Last administered on 10/28/16 20: 44; Admin Dose 40 MG; Start 10/26/16 at 21:00 Dexamethasone (Decadron) 4 mg Q12 IV Last administered on 10/29/16 08:56; Admin Dose 4 MG; Start 10/26/16 at 21:00 Docusate Sodium (Colace) 100 mg BID PO Last administered on 10/29/16 08:57; Admin Dose 100 MG; Start 10/26/16 at 21:00 Famotidine (Pepcid) 20 mg DAILY PO Last administered on 10/29/16 08:58; Admin Dose 20 MG; Start 10/27/16 at 09:00 Acetaminophen/ Hydrocodone Bitart ([place] (5/325)) 1 tab Q4H PRN PO MILD PAIN LEVEL 1-3 Last administered on 10/29/16 10:32; Admin Dose 1 TAB; Start at 15:00 Lisinopril (Zestril) 40 mg DAILY PO Last administered on 10/29/16 09:04; Admin Dose 40 MG; Start 10/27/16 at 09:00 Morphine Sulfate (morphine) 1 mg Q2H PRN IV mild Last administered on 07:22; Admin Dose 1 MG; Start 10/26/16 at 15:00 Morphine Sulfate (morphine) 2 mg Q2H PRN IV PAIN LEVEL 1-5 Last administered on 10/27/16 10:07; Admin Dose 2 MG; Start 10/26/16 at 15:00 Morphine Sulfate (morphine) 4 mg Q4H PRN IV SEVERE PAIN LEVEL 7-10; Start 10/26 at 15:00 Ondansetron HCl (Zofran Inj) 4 mg Q6H PRN IV NAUSEA AND/OR VOMITING; Start at 15:00 Senna (Senokot) 1 tab BID PRN PO CONSTIPATION; Start 10/26/16 at 15:00 Bisacodyl (Dulcolax Supp) 10 mg DAILY PRN [place] CONSTIPATION; Start 10/26/16 at 15 :00 Magnesium Hydroxide (Milk Of Mag) 30 ml BID PRN PO CONSTIPATION; Start at 15:00 Lactulose (Enulose) 20 gm DAILY PRN PO CONSTIPATION Last administered on 21:51; Admin Dose 20 GM; Start 10/26/16 at 15:00 Miscellaneous Information 1 ea NOTE XX ; Start 10/26/16 at 15:00 Glucose (Glutose) 15 gm Q15M PRN PO DECREASED GLUCOSE; Start 10/26/16 at 15:00 Glucose (Glutose) 22.5 gm Q15M PRN PO DECREASED GLUCOSE; Start 10/26/16 at 15: 00 Dextrose (D50w Syringe) 25 ml Q15M PRN IV DECREASED GLUCOSE; Start 10/26/16 at 15:00 Dextrose (D50w Syringe) 50 ml Q15M PRN IV DECREASED GLUCOSE; Start 10/26/16 at 15:00 Glucagon (Glucagen) 1 mg Q15M PRN IM DECREASED GLUCOSE; Start 10/26/16 at 15:00 Glucose (Glutose) 15 gm Q15M PRN BUCCAL DECREASED GLUCOSE; Start 10/26/16 at 15 :00 Carisoprodol (Soma) 350 mg Q8H PRN PO MUSCLE SPASMS Last administered on 09:04; Admin Dose 350 MG; Start 10/26/16 at 17:00 Senna (Senokot) 2 tab BID PO Last administered on 10/29/16 08:58; Admin Dose 2 TAB; Start 10/27/16 at 21:00 Oxycodone HCl (Oxycontin) 10 mg TID PO Last administered on 10/29/16 12:15; Admin Dose 10 MG; Start 10/27/16 at 13:00 Gabapentin (Neurontin) 100 mg TID PO Last administered on 10/29/16 12:15; Admin Dose 100 MG; Start 10/28/16 at 21:00 Baclofen (Lioresal) 10 mg TID PO Last administered on 10/29/16 12:15; Admin Dose 10 MG; Start 10/28/16 at 21:00 Procedures Procedures PROCEDURE: CT Brain without contrast. CLINICAL INDICATION: Severe headache and blurry vision. Weakness. TECHNIQUE: A CT of the brain without contrast was performed utilizing axial sections from the skull base through the vertex. The patient was scanned without intravenous contrast enhancement. Sagittal and coronal reformatted images were obtained using the data from the axial images. Total exam DLP is 630.20 mGy-cm. CTDIvol is 44.26 mGy. One or more of the following dose reduction techniques were used: Automated exposure control, adjustment of the mA and/or kV according to patient size, use of iterative reconstruction technique. COMPARISON: None available FINDINGS: There is normal gottlieb-white matter differentiation. There is a patent cavum septum pellucidum, a normal variant. The ventricles and cisterns are otherwise normal. There is no intracranial hemorrhage or space-occupying lesion. There is no skull fracture or lytic lesion. IMPRESSION: 1. Unremarkable noncontrast CT scan of the brain. 2. No intracranial hemorrhage. RPTAT: QQ .Robert Goodman MD, MD Date Time Electronically viewed and signed by .Robert Goodman MD, on 10/29/2016 11:51 PROCEDURE: XR Chest. CLINICAL INDICATION: chest pain TECHNIQUE: Single frontal view of the chest was obtained COMPARISON: None FINDINGS: The heart and mediastinum are within normal limits. There are mild right lower lobe linear atelectatic changes. The lungs are otherwise clear. There is no pleural effusion or pneumothorax. RPTAT: AA IMPRESSION: Mild right lower lobe linear atelectatic changes. .Valerio Mendoza MD, MD Date Time Electronically viewed and signed by .Valerio Mendoza MD, MD on 10/29/2016 10: 01 CHRISTINA VAUGHAN MD Oct 29, 2016 14:37
[2016-10-29] MEDS: CIPROFLOXACIN 500 MG TAB PO SCH (16:45)
[2016-10-29] MEDS: ATORVASTATIN 40 MG TAB PO SCH (20:45)
--- NOTE | 2016-10-29 21:10 | RADRPT ---
Vent Rate: 63 bpm RR Interval: 0 msec GA Interval: 136 msec QRS Duration: 104 msec QT Interval: 396 msec QTC Interval: 405 msec P-R-T [place]: 47 - 51 - 37 degrees Normal sinus rhythm Normal ECG Electronically Signed By: Bharat Beatty [id number]
--- NOTE | 2016-10-29 21:13 | RADRPT ---
Vent Rate: 61 bpm RR Interval: 0 msec AL Interval: 140 msec QRS Duration: 102 msec QT Interval: 388 msec QTC Interval: 390 msec P-R-T [place]: 44 - 55 - 31 degrees Normal sinus rhythm Normal ECG Electronically Signed By: Bharat Beatty [id number]
[2016-10-29 22:45] VITALS: BP 131/79; RESP 18
[2016-10-30] MEDS: CARISOPRODOL 350 MG TAB PO PRN (01:38)
[2016-10-30] MEDS: ACCUCHECK XX SCH (02:00)
[2016-10-30] MEDS: CIPROFLOXACIN 500 MG TAB PO SCH (06:09)
[2016-10-30] MEDS: INSULIN ASPART [NOVOLOG] 3 ML PEN SC SCH ×4 (07:35→20:59)
[2016-10-30] MEDS: BACLOFEN 10 MG TAB PO SCH ×3 (08:54→20:55)
[2016-10-30] MEDS: FAMOTIDINE 20 MG TAB PO SCH (08:54)
[2016-10-30] MEDS: LISINOPRIL 20 MG TAB PO SCH (08:54)
[2016-10-30] MEDS: GABAPENTIN 100 MG CAP PO SCH ×3 (08:54→20:57)
[2016-10-30] MEDS: DOCUSATE SODIUM 100 MG CAP PO SCH ×2 (08:54→20:58)
[2016-10-30] MEDS: DEXAMETHASONE 4 MG/ML 1 ML INJ IV SCH ×2 (08:54→20:58)
[2016-10-30] MEDS: AMLODIPINE 5 MG TAB PO SCH (08:55)
[2016-10-30] MEDS: SENNA TAB PO SCH ×2 (08:55→20:58)
[2016-10-30] MEDS: oxyCODONE (CR) 10 MG TAB [oxyCONTIN] PO SCH ×3 (08:55→20:56)
[2016-10-30 09:17] VITALS: RESP 18
--- NOTE | 2016-10-30 12:22 | CONS ---
Date/Time of Note Date/Time of Note DATE: 10/30/16 TIME: 12:22 Consult Date/Type/Reason Admit Date/Time Oct 26, 2016 at 14:30 Subjective Reports pain under good control Objective cga ambulation Vital Signs Date Time Temp Pulse Resp B/P Pulse Ox O2 Delivery O2 Flow Rate FiO2 10/30/16 09:17 98.6 67 18 98 10/26/16 20:00 Room Air Intake and Output 10/29/16 10/29/16 10/30/16 14:59 22:59 06:59 Intake Total 720 ml 360 ml 400 ml Output Total 1000 ml Balance 720 ml 360 ml -600 ml Results/Medications Result Diagram: 10/27/16 0610 10/27/16 0610 Results 24 hrs Laboratory Tests Test 10/29/16 17:15 10/29/16 20:17 10/30/16 07:46 Bedside Glucose 177 156 122 Medications Current Medications Diagnostic Test (Pha) (Accucheck) 1 ea 02 XX Last administered on 10/27/16 02: 00; Admin Dose 1 EA; Start 10/27/16 at 02:00 Amlodipine Besylate (Norvasc) 5 mg DAILY PO Last administered on 10/30/16 08: 55; Admin Dose 5 MG; Start 10/27/16 at 09:00 Atorvastatin Calcium (Lipitor) 40 mg QHS PO Last administered on 10/29/16 20: 45; Admin Dose 40 MG; Start 10/26/16 at 21:00 Dexamethasone (Decadron) 4 mg Q12 IV Last administered on 10/30/16 08:54; Admin Dose 4 MG; Start 10/26/16 at 21:00 Docusate Sodium (Colace) 100 mg BID PO Last administered on 10/30/16 08:54; Admin Dose 100 MG; Start 10/26/16 at 21:00 Famotidine (Pepcid) 20 mg DAILY PO Last administered on 10/30/16 08:54; Admin Dose 20 MG; Start 10/27/16 at 09:00 Acetaminophen/ Hydrocodone Bitart ([place] (5/325)) 1 tab Q4H PRN PO MILD PAIN LEVEL 1-3 Last administered on 10/29/16 17:32; Admin Dose 1 TAB; Start at 15:00 Lisinopril (Zestril) 40 mg DAILY PO Last administered on 10/30/16 08:54; Admin Dose 40 MG; Start 10/27/16 at 09:00 Morphine Sulfate (morphine) 1 mg Q2H PRN IV mild Last administered on 07:22; Admin Dose 1 MG; Start 10/26/16 at 15:00 Morphine Sulfate (morphine) 2 mg Q2H PRN IV PAIN LEVEL 1-5 Last administered on 10/27/16 10:07; Admin Dose 2 MG; Start 10/26/16 at 15:00 Morphine Sulfate (morphine) 4 mg Q4H PRN IV SEVERE PAIN LEVEL 7-10; Start 10/26 at 15:00 Ondansetron HCl (Zofran Inj) 4 mg Q6H PRN IV NAUSEA AND/OR VOMITING; Start at 15:00 Senna (Senokot) 1 tab BID PRN PO CONSTIPATION; Start 10/26/16 at 15:00 Bisacodyl (Dulcolax Supp) 10 mg DAILY PRN [place] CONSTIPATION; Start 10/26/16 at 15 :00 Magnesium Hydroxide (Milk Of Mag) 30 ml BID PRN PO CONSTIPATION; Start at 15:00 Lactulose (Enulose) 20 gm DAILY PRN PO CONSTIPATION Last administered on 21:51; Admin Dose 20 GM; Start 10/26/16 at 15:00 Miscellaneous Information 1 ea NOTE XX ; Start 10/26/16 at 15:00 Glucose (Glutose) 15 gm Q15M PRN PO DECREASED GLUCOSE; Start 10/26/16 at 15:00 Glucose (Glutose) 22.5 gm Q15M PRN PO DECREASED GLUCOSE; Start 10/26/16 at 15: 00 Dextrose (D50w Syringe) 25 ml Q15M PRN IV DECREASED GLUCOSE; Start 10/26/16 at 15:00 Dextrose (D50w Syringe) 50 ml Q15M PRN IV DECREASED GLUCOSE; Start 10/26/16 at 15:00 Glucagon (Glucagen) 1 mg Q15M PRN IM DECREASED GLUCOSE; Start 10/26/16 at 15:00 Glucose (Glutose) 15 gm Q15M PRN BUCCAL DECREASED GLUCOSE; Start 10/26/16 at 15 :00 Carisoprodol (Soma) 350 mg Q8H PRN PO MUSCLE SPASMS Last administered on 01:38; Admin Dose 350 MG; Start 10/26/16 at 17:00 Senna (Senokot) 2 tab BID PO Last administered on 10/30/16 08:55; Admin Dose 2 TAB; Start 10/27/16 at 21:00 Oxycodone HCl (Oxycontin) 10 mg TID PO Last administered on 10/30/16 08:55; Admin Dose 10 MG; Start 10/27/16 at 13:00 Gabapentin (Neurontin) 100 mg TID PO Last administered on 10/30/16 08:54; Admin Dose 100 MG; Start 10/28/16 at 21:00 Baclofen (Lioresal) 10 mg TID PO Last administered on 10/30/16 08:54; Admin Dose 10 MG; Start 10/28/16 at 21:00 Ciprofloxacin (Cipro) 500 mg DAILY@06 PO Last administered on 10/30/16 06:09; Admin Dose 500 MG; Start 10/29/16 at 16:00; Stop 11/02/16 at 15:59 Assessment/Plan Additional Assessment/Plan Rehab- Severe cervical stenosis with cord compression at C4 through C5, status post cervical decompressive laminectomy. Dong well today, continue treatment plan Acute pain syndrome- improved Hypertension. Diabetes mellitus. CORRIE RAMOS MD Oct 30, 2016 12:22
[2016-10-30 19:41] VITALS: BP 127/78; RESP 18
--- NOTE | 2016-10-30 20:29 | PN ---
Date/Time of Note Date/Time of Note DATE: 10/30/16 TIME: 20:27 Assessment/Plan VTE Prophylaxis VTE Prophylaxis Intervention: SCD's Lines/Catheters IV Catheter Type (from Nrsg): Saline Lock Urinary Cath still in place: No Assessment/Plan Assessment/Plan 1. Hypertension. 2. Diabetes mellitus. 3. Severe cervical stenosis with cord compression at C4-5. S/p posterior cervical laminectomy C3 through C7 on 10/23/2016 4. Constipation- Resolved 5. Musculoskeletal Chest Pain, Non Cardiac 6. Rt Lower Lung Atelectasis 7. Urine Culture Enterococcus. marley Rowell. Subjective 24 Hr Interval Summary Free Text/Dictation NAD. Tolerates PT. dw staff Musculoskeletal: neck pain Exam/Review of Systems Vital Signs Vitals Vital Signs Date Time Temp Pulse Resp B/P Pulse Ox O2 Delivery O2 Flow Rate FiO2 10/30/16 19:41 97.6 70 18 127/78 96 10/26/16 20:00 Room Air Intake and Output 10/29/16 10/29/16 10/30/16 15:00 23:00 07:00 Intake Total 720 ml 360 ml 400 ml Output Total 1000 ml Balance 720 ml 360 ml -600 ml Exam Constitutional: alert, oriented, well developed Psych: nl mood/affect Eyes: EOMI, PERRL ENMT: nl external ears & nose Neck: non-tender, other (cx collar noted) Respiratory: clear to auscultation Cardiovascular: nl pulses Gastrointestinal: non-tender, soft Musculoskeletal: nl extremities to inspection Extremities: normal pulses Neurological: nl mental status, nl speech Skin: nl turgor Lymph: nontender Results Result Diagram: 10/27/16 0610 10/27/16 0610 Results 24 hrs Laboratory Tests Test 10/30/16 07:46 10/30/16 12:36 10/30/16 17:37 10/30/16 20:16 Bedside Glucose 122 146 155 178 Medications Medications Current Medications Diagnostic Test (Pha) (Accucheck) 1 ea 02 XX Last administered on 10/27/16 02: 00; Admin Dose 1 EA; Start 10/27/16 at 02:00 Amlodipine Besylate (Norvasc) 5 mg DAILY PO Last administered on 10/30/16 08: 55; Admin Dose 5 MG; Start 10/27/16 at 09:00 Atorvastatin Calcium (Lipitor) 40 mg QHS PO Last administered on 10/29/16 20: 45; Admin Dose 40 MG; Start 10/26/16 at 21:00 Dexamethasone (Decadron) 4 mg Q12 IV Last administered on 10/30/16 08:54; Admin Dose 4 MG; Start 10/26/16 at 21:00 Docusate Sodium (Colace) 100 mg BID PO Last administered on 10/30/16 08:54; Admin Dose 100 MG; Start 10/26/16 at 21:00 Famotidine (Pepcid) 20 mg DAILY PO Last administered on 10/30/16 08:54; Admin Dose 20 MG; Start 10/27/16 at 09:00 Acetaminophen/ Hydrocodone Bitart ([place] (5/325)) 1 tab Q4H PRN PO MILD PAIN LEVEL 1-3 Last administered on 10/29/16 17:32; Admin Dose 1 TAB; Start at 15:00 Lisinopril (Zestril) 40 mg DAILY PO Last administered on 10/30/16 08:54; Admin Dose 40 MG; Start 10/27/16 at 09:00 Morphine Sulfate (morphine) 1 mg Q2H PRN IV mild Last administered on 07:22; Admin Dose 1 MG; Start 10/26/16 at 15:00 Morphine Sulfate (morphine) 2 mg Q2H PRN IV PAIN LEVEL 1-5 Last administered on 10/27/16 10:07; Admin Dose 2 MG; Start 10/26/16 at 15:00 Morphine Sulfate (morphine) 4 mg Q4H PRN IV SEVERE PAIN LEVEL 7-10; Start 10/26 at 15:00 Ondansetron HCl (Zofran Inj) 4 mg Q6H PRN IV NAUSEA AND/OR VOMITING; Start at 15:00 Senna (Senokot) 1 tab BID PRN PO CONSTIPATION; Start 10/26/16 at 15:00 Bisacodyl (Dulcolax Supp) 10 mg DAILY PRN [place] CONSTIPATION; Start 10/26/16 at 15 :00 Magnesium Hydroxide (Milk Of Mag) 30 ml BID PRN PO CONSTIPATION; Start at 15:00 Lactulose (Enulose) 20 gm DAILY PRN PO CONSTIPATION Last administered on 21:51; Admin Dose 20 GM; Start 10/26/16 at 15:00 Miscellaneous Information 1 ea NOTE XX ; Start 10/26/16 at 15:00 Glucose (Glutose) 15 gm Q15M PRN PO DECREASED GLUCOSE; Start 10/26/16 at 15:00 Glucose (Glutose) 22.5 gm Q15M PRN PO DECREASED GLUCOSE; Start 10/26/16 at 15: 00 Dextrose (D50w Syringe) 25 ml Q15M PRN IV DECREASED GLUCOSE; Start 10/26/16 at 15:00 Dextrose (D50w Syringe) 50 ml Q15M PRN IV DECREASED GLUCOSE; Start 10/26/16 at 15:00 Glucagon (Glucagen) 1 mg Q15M PRN IM DECREASED GLUCOSE; Start 10/26/16 at 15:00 Glucose (Glutose) 15 gm Q15M PRN BUCCAL DECREASED GLUCOSE; Start 10/26/16 at 15 :00 Carisoprodol (Soma) 350 mg Q8H PRN PO MUSCLE SPASMS Last administered on 01:38; Admin Dose 350 MG; Start 10/26/16 at 17:00 Senna (Senokot) 2 tab BID PO Last administered on 10/30/16 08:55; Admin Dose 2 TAB; Start 10/27/16 at 21:00 Oxycodone HCl (Oxycontin) 10 mg TID PO Last administered on 10/30/16 12:54; Admin Dose 10 MG; Start 10/27/16 at 13:00 Gabapentin (Neurontin) 100 mg TID PO Last administered on 10/30/16 12:54; Admin Dose 100 MG; Start 10/28/16 at 21:00 Baclofen (Lioresal) 10 mg TID PO Last administered on 10/30/16 12:54; Admin Dose 10 MG; Start 10/28/16 at 21:00 Ciprofloxacin (Cipro) 500 mg DAILY@06 PO Last administered on 10/30/16 06:09; Admin Dose 500 MG; Start 10/29/16 at 16:00; Stop 11/02/16 at 15:59 DANGELO DENNY Oct 30, 2016 20:29
[2016-10-30] MEDS: ATORVASTATIN 40 MG TAB PO SCH (20:57)
[2016-10-31] MEDS: ACCUCHECK XX SCH (02:00)
[2016-10-31] MEDS: CARISOPRODOL 350 MG TAB PO PRN ×2 (02:55→14:42)
[2016-10-31] MEDS: CIPROFLOXACIN 500 MG TAB PO SCH (06:08)
[2016-10-31] MEDS: INSULIN ASPART [NOVOLOG] 3 ML PEN SC SCH ×4 (07:35→20:35)
[2016-10-31] MEDS: DEXAMETHASONE 4 MG/ML 1 ML INJ IV SCH ×2 (08:46→20:24)
[2016-10-31] MEDS: DOCUSATE SODIUM 100 MG CAP PO SCH ×2 (08:47→20:24)
[2016-10-31] MEDS: HYDROCODONE/APAP (5/325) TAB PO PRN ×2 (08:47→14:42)
[2016-10-31] MEDS: FAMOTIDINE 20 MG TAB PO SCH (08:47)
[2016-10-31] MEDS: BACLOFEN 10 MG TAB PO SCH ×3 (08:47→20:24)
[2016-10-31] MEDS: LISINOPRIL 20 MG TAB PO SCH (08:47)
[2016-10-31] MEDS: GABAPENTIN 100 MG CAP PO SCH ×3 (08:48→20:24)
[2016-10-31] MEDS: SENNA TAB PO SCH ×2 (08:48→20:24)
[2016-10-31] MEDS: AMLODIPINE 5 MG TAB PO SCH (08:48)
[2016-10-31] MEDS: oxyCODONE (CR) 10 MG TAB [oxyCONTIN] PO SCH ×3 (08:48→20:24)
--- NOTE | 2016-10-31 12:16 | CONS ---
Date/Time of Note Date/Time of Note DATE: 10/31/16 TIME: 12:14 Consult Date/Type/Reason Admit Date/Time Oct 26, 2016 at 14:30 Subjective Patient feeling much better Objective cga ambulation Vital Signs Date Time Temp Pulse Resp B/P Pulse Ox O2 Delivery O2 Flow Rate FiO2 10/30/16 19:41 97.6 70 18 127/78 96 Intake and Output 10/30/16 10/30/16 10/31/16 15:00 23:00 07:00 Intake Total 520 ml 120 ml 350 ml Output Total 1152 ml Balance 520 ml 120 ml -802 ml Results/Medications Result Diagram: 10/27/16 0610 10/27/16 0610 Results 24 hrs Laboratory Tests Test 10/30/16 12:36 10/30/16 17:37 10/30/16 20:16 10/31/16 07:37 Bedside Glucose 146 155 178 107 Test 10/31/16 11:48 Bedside Glucose 135 Medications Current Medications Diagnostic Test (Pha) (Accucheck) 1 ea 02 XX Last administered on 10/27/16 02: 00; Admin Dose 1 EA; Start 10/27/16 at 02:00 Amlodipine Besylate (Norvasc) 5 mg DAILY PO Last administered on 10/31/16 08: 48; Admin Dose 5 MG; Start 10/27/16 at 09:00 Atorvastatin Calcium (Lipitor) 40 mg QHS PO Last administered on 10/30/16 20: 57; Admin Dose 40 MG; Start 10/26/16 at 21:00 Dexamethasone (Decadron) 4 mg Q12 IV Last administered on 10/31/16 08:46; Admin Dose 4 MG; Start 10/26/16 at 21:00 Docusate Sodium (Colace) 100 mg BID PO Last administered on 10/31/16 08:47; Admin Dose 100 MG; Start 10/26/16 at 21:00 Famotidine (Pepcid) 20 mg DAILY PO Last administered on 10/31/16 08:47; Admin Dose 20 MG; Start 10/27/16 at 09:00 Acetaminophen/ Hydrocodone Bitart ([place] (5/325)) 1 tab Q4H PRN PO MILD PAIN LEVEL 1-3 Last administered on 10/31/16 08:47; Admin Dose 1 TAB; Start at 15:00 Lisinopril (Zestril) 40 mg DAILY PO Last administered on 10/31/16 08:47; Admin Dose 40 MG; Start 10/27/16 at 09:00 Morphine Sulfate (morphine) 1 mg Q2H PRN IV mild Last administered on 07:22; Admin Dose 1 MG; Start 10/26/16 at 15:00 Morphine Sulfate (morphine) 2 mg Q2H PRN IV PAIN LEVEL 1-5 Last administered on 10/27/16 10:07; Admin Dose 2 MG; Start 10/26/16 at 15:00 Morphine Sulfate (morphine) 4 mg Q4H PRN IV SEVERE PAIN LEVEL 7-10; Start 10/26 at 15:00 Ondansetron HCl (Zofran Inj) 4 mg Q6H PRN IV NAUSEA AND/OR VOMITING; Start at 15:00 Senna (Senokot) 1 tab BID PRN PO CONSTIPATION; Start 10/26/16 at 15:00 Bisacodyl (Dulcolax Supp) 10 mg DAILY PRN [place] CONSTIPATION; Start 10/26/16 at 15 :00 Magnesium Hydroxide (Milk Of Mag) 30 ml BID PRN PO CONSTIPATION; Start at 15:00 Lactulose (Enulose) 20 gm DAILY PRN PO CONSTIPATION Last administered on 21:51; Admin Dose 20 GM; Start 10/26/16 at 15:00 Miscellaneous Information 1 ea NOTE XX ; Start 10/26/16 at 15:00 Glucose (Glutose) 15 gm Q15M PRN PO DECREASED GLUCOSE; Start 10/26/16 at 15:00 Glucose (Glutose) 22.5 gm Q15M PRN PO DECREASED GLUCOSE; Start 10/26/16 at 15: 00 Dextrose (D50w Syringe) 25 ml Q15M PRN IV DECREASED GLUCOSE; Start 10/26/16 at 15:00 Dextrose (D50w Syringe) 50 ml Q15M PRN IV DECREASED GLUCOSE; Start 10/26/16 at 15:00 Glucagon (Glucagen) 1 mg Q15M PRN IM DECREASED GLUCOSE; Start 10/26/16 at 15:00 Glucose (Glutose) 15 gm Q15M PRN BUCCAL DECREASED GLUCOSE; Start 10/26/16 at 15 :00 Carisoprodol (Soma) 350 mg Q8H PRN PO MUSCLE SPASMS Last administered on 02:55; Admin Dose 350 MG; Start 10/26/16 at 17:00 Senna (Senokot) 2 tab BID PO Last administered on 10/31/16 08:48; Admin Dose 2 TAB; Start 10/27/16 at 21:00 Oxycodone HCl (Oxycontin) 10 mg TID PO Last administered on 10/31/16 08:48; Admin Dose 10 MG; Start 10/27/16 at 13:00 Gabapentin (Neurontin) 100 mg TID PO Last administered on 10/31/16 08:48; Admin Dose 100 MG; Start 10/28/16 at 21:00 Baclofen (Lioresal) 10 mg TID PO Last administered on 10/31/16 08:47; Admin Dose 10 MG; Start 10/28/16 at 21:00 Ciprofloxacin (Cipro) 500 mg DAILY@06 PO Last administered on 10/31/16 06:08; Admin Dose 500 MG; Start 10/29/16 at 16:00; Stop 11/02/16 at 15:59 Assessment/Plan Additional Assessment/Plan Rehab- Severe cervical stenosis with cord compression at C4 through C5, status post cervical decompressive laminectomy. Continue rehab program Acute pain syndrome- improved on current regime Hypertension. Diabetes mellitus. CORRIE RAMOS MD Oct 31, 2016 12:16
--- NOTE | 2016-10-31 16:01 | PN ---
Date/Time of Note Date/Time of Note DATE: 10/31/16 TIME: 16:00 Assessment/Plan VTE Prophylaxis VTE Prophylaxis Intervention: other Lines/Catheters [facility] Saline Lock Urinary Cath still in place: No Assessment/Plan Chief Complaint/Hosp Course 1. Hypertension. - BP ok 2. Diabetes mellitus. - follow blood sugar 3. Severe cervical stenosis with cord compression at C4-5. S/p posterior cervical laminectomy C3 through C7 on 10/23/2016 - continue PT 4. Constipation- Resolved 5. Musculoskeletal Chest Pain, Non Cardiac 6. Rt Lower Lung Atelectasis 7. Urine Culture Enterococcus. Problems: Subjective 24 Hr Interval Summary Free Text/Dictation Patient has no complaints Exam/Review of Systems Vital Signs Vitals Vital Signs Date Time Temp Pulse Resp B/P Pulse Ox O2 Delivery O2 Flow Rate FiO2 10/30/16 19:41 97.6 70 18 127/78 96 Intake and Output 10/30/16 10/30/16 10/31/16 15:00 23:00 07:00 Intake Total 520 ml 120 ml 350 ml Output Total 1152 ml Balance 520 ml 120 ml -802 ml Exam Head: atraumatic, normocephalic Neck: supple Respiratory: clear to auscultation Cardiovascular: regular rate and rhythm Gastrointestinal: non-tender, soft Extremities: normal pulses Results Result Diagram: 10/27/16 0610 10/27/16 0610 Results 24 hrs Laboratory Tests Test 10/30/16 17:37 10/30/16 20:16 10/31/16 07:37 10/31/16 11:48 Bedside Glucose 155 178 107 135 Medications Medications Current Medications Diagnostic Test (Pha) (Accucheck) 1 ea 02 XX Last administered on 10/27/16 02: 00; Admin Dose 1 EA; Start 10/27/16 at 02:00 Amlodipine Besylate (Norvasc) 5 mg DAILY PO Last administered on 10/31/16 08: 48; Admin Dose 5 MG; Start 10/27/16 at 09:00 Atorvastatin Calcium (Lipitor) 40 mg QHS PO Last administered on 10/30/16 20: 57; Admin Dose 40 MG; Start 10/26/16 at 21:00 Dexamethasone (Decadron) 4 mg Q12 IV Last administered on 10/31/16 08:46; Admin Dose 4 MG; Start 10/26/16 at 21:00 Docusate Sodium (Colace) 100 mg BID PO Last administered on 10/31/16 08:47; Admin Dose 100 MG; Start 10/26/16 at 21:00 Famotidine (Pepcid) 20 mg DAILY PO Last administered on 10/31/16 08:47; Admin Dose 20 MG; Start 10/27/16 at 09:00 Acetaminophen/ Hydrocodone Bitart ([place] (5/325)) 1 tab Q4H PRN PO MILD PAIN LEVEL 1-3 Last administered on 10/31/16 14:42; Admin Dose 1 TAB; Start at 15:00 Lisinopril (Zestril) 40 mg DAILY PO Last administered on 10/31/16 08:47; Admin Dose 40 MG; Start 10/27/16 at 09:00 Morphine Sulfate (morphine) 1 mg Q2H PRN IV mild Last administered on 07:22; Admin Dose 1 MG; Start 10/26/16 at 15:00 Morphine Sulfate (morphine) 2 mg Q2H PRN IV PAIN LEVEL 1-5 Last administered on 10/27/16 10:07; Admin Dose 2 MG; Start 10/26/16 at 15:00 Morphine Sulfate (morphine) 4 mg Q4H PRN IV SEVERE PAIN LEVEL 7-10; Start 10/26 at 15:00 Ondansetron HCl (Zofran Inj) 4 mg Q6H PRN IV NAUSEA AND/OR VOMITING; Start at 15:00 Senna (Senokot) 1 tab BID PRN PO CONSTIPATION; Start 10/26/16 at 15:00 Bisacodyl (Dulcolax Supp) 10 mg DAILY PRN [place] CONSTIPATION; Start 10/26/16 at 15 :00 Magnesium Hydroxide (Milk Of Mag) 30 ml BID PRN PO CONSTIPATION; Start at 15:00 Lactulose (Enulose) 20 gm DAILY PRN PO CONSTIPATION Last administered on 21:51; Admin Dose 20 GM; Start 10/26/16 at 15:00 Miscellaneous Information 1 ea NOTE XX ; Start 10/26/16 at 15:00 Glucose (Glutose) 15 gm Q15M PRN PO DECREASED GLUCOSE; Start 10/26/16 at 15:00 Glucose (Glutose) 22.5 gm Q15M PRN PO DECREASED GLUCOSE; Start 10/26/16 at 15: 00 Dextrose (D50w Syringe) 25 ml Q15M PRN IV DECREASED GLUCOSE; Start 10/26/16 at 15:00 Dextrose (D50w Syringe) 50 ml Q15M PRN IV DECREASED GLUCOSE; Start 10/26/16 at 15:00 Glucagon (Glucagen) 1 mg Q15M PRN IM DECREASED GLUCOSE; Start 10/26/16 at 15:00 Glucose (Glutose) 15 gm Q15M PRN BUCCAL DECREASED GLUCOSE; Start 10/26/16 at 15 :00 Carisoprodol (Soma) 350 mg Q8H PRN PO MUSCLE SPASMS Last administered on 14:42; Admin Dose 350 MG; Start 10/26/16 at 17:00 Senna (Senokot) 2 tab BID PO Last administered on 10/31/16 08:48; Admin Dose 2 TAB; Start 10/27/16 at 21:00 Oxycodone HCl (Oxycontin) 10 mg TID PO Last administered on 10/31/16 12:18; Admin Dose 10 MG; Start 10/27/16 at 13:00 Gabapentin (Neurontin) 100 mg TID PO Last administered on 10/31/16 12:18; Admin Dose 100 MG; Start 10/28/16 at 21:00 Baclofen (Lioresal) 10 mg TID PO Last administered on 10/31/16 12:18; Admin Dose 10 MG; Start 10/28/16 at 21:00 Ciprofloxacin (Cipro) 500 mg DAILY@06 PO Last administered on 10/31/16 06:08; Admin Dose 500 MG; Start 10/29/16 at 16:00; Stop 11/02/16 at 15:59 STANLEY BLANCO Oct 31, 2016 16:01
[2016-10-31] MEDS: ATORVASTATIN 40 MG TAB PO SCH (20:24)
[2016-11-01] MEDS: CARISOPRODOL 350 MG TAB PO PRN ×2 (00:19→09:54)
[2016-11-01] MEDS: HYDROCODONE/APAP (5/325) TAB PO PRN (03:48)
[2016-11-01] MEDS: ACCUCHECK XX SCH (03:56)
[2016-11-01] MEDS: CIPROFLOXACIN 500 MG TAB PO SCH (06:28)
[2016-11-01] MEDS: INSULIN ASPART [NOVOLOG] 3 ML PEN SC SCH ×4 (07:35→21:00)
[2016-11-01] MEDS: DEXAMETHASONE 4 MG/ML 1 ML INJ IV SCH ×2 (08:13→21:16)
[2016-11-01] MEDS: LISINOPRIL 20 MG TAB PO SCH (08:14)
[2016-11-01] MEDS: DOCUSATE SODIUM 100 MG CAP PO SCH ×2 (08:15→21:00)
[2016-11-01] MEDS: AMLODIPINE 5 MG TAB PO SCH (08:15)
[2016-11-01] MEDS: oxyCODONE (CR) 10 MG TAB [oxyCONTIN] PO SCH ×3 (08:16→21:17)
[2016-11-01] MEDS: FAMOTIDINE 20 MG TAB PO SCH (08:16)
[2016-11-01] MEDS: BACLOFEN 10 MG TAB PO SCH ×3 (08:16→21:17)
[2016-11-01] MEDS: SENNA TAB PO SCH ×2 (08:16→21:00)
[2016-11-01] MEDS: GABAPENTIN 100 MG CAP PO SCH ×3 (08:17→21:17)
[2016-11-01 09:00] VITALS: BP 164/93; RESP 18
[2016-11-01 09:37] VITALS: BP 164/93; RESP 18
--- NOTE | 2016-11-01 10:22 | CONS ---
Date/Time of Note Date/Time of Note DATE: 11/01/16 TIME: 10:22 Consult Date/Type/Reason Admit Date/Time Oct 26, 2016 at 14:30 Subjective Excellent progress Objective sba ambulation Vital Signs Date Time Temp Pulse Resp B/P Pulse Ox O2 Delivery O2 Flow Rate FiO2 11/01/16 09:37 97.8 72 18 164/93 98 Intake and Output 10/31/16 10/31/16 11/01/16 15:00 23:00 07:00 Intake Total 410 ml 760 ml Output Total 350 ml Balance 60 ml 760 ml Results/Medications Results 24 hrs Laboratory Tests Test 10/31/16 11:48 10/31/16 17:04 10/31/16 20:17 11/01/16 03:45 Bedside Glucose 135 142 200 189 Test 11/01/16 07:37 Bedside Glucose 107 Medications Current Medications Diagnostic Test (Pha) (Accucheck) 1 ea 02 XX Last administered on 11/01/16 03: 56; Admin Dose 1 EA; Start 10/27/16 at 02:00 Amlodipine Besylate (Norvasc) 5 mg DAILY PO Last administered on 11/01/16 08: 15; Admin Dose 5 MG; Start 10/27/16 at 09:00 Atorvastatin Calcium (Lipitor) 40 mg QHS PO Last administered on 10/31/16 20: 24; Admin Dose 40 MG; Start 10/26/16 at 21:00 Dexamethasone (Decadron) 4 mg Q12 IV Last administered on 11/01/16 08:13; Admin Dose 4 MG; Start 10/26/16 at 21:00 Docusate Sodium (Colace) 100 mg BID PO Last administered on 11/01/16 08:15; Admin Dose 100 MG; Start 10/26/16 at 21:00 Famotidine (Pepcid) 20 mg DAILY PO Last administered on 11/01/16 08:16; Admin Dose 20 MG; Start 10/27/16 at 09:00 Acetaminophen/ Hydrocodone Bitart ([place] (5/325)) 1 tab Q4H PRN PO MILD PAIN LEVEL 1-3 Last administered on 11/01/16 03:48; Admin Dose 1 TAB; Start at 15:00 Lisinopril (Zestril) 40 mg DAILY PO Last administered on 11/01/16 08:14; Admin Dose 40 MG; Start 10/27/16 at 09:00 Morphine Sulfate (morphine) 1 mg Q2H PRN IV mild Last administered on 07:22; Admin Dose 1 MG; Start 10/26/16 at 15:00 Morphine Sulfate (morphine) 2 mg Q2H PRN IV PAIN LEVEL 1-5 Last administered on 10/27/16 10:07; Admin Dose 2 MG; Start 10/26/16 at 15:00 Morphine Sulfate (morphine) 4 mg Q4H PRN IV SEVERE PAIN LEVEL 7-10; Start 10/26 at 15:00 Ondansetron HCl (Zofran Inj) 4 mg Q6H PRN IV NAUSEA AND/OR VOMITING; Start at 15:00 Senna (Senokot) 1 tab BID PRN PO CONSTIPATION; Start 10/26/16 at 15:00 Bisacodyl (Dulcolax Supp) 10 mg DAILY PRN [place] CONSTIPATION; Start 10/26/16 at 15 :00 Magnesium Hydroxide (Milk Of Mag) 30 ml BID PRN PO CONSTIPATION; Start at 15:00 Lactulose (Enulose) 20 gm DAILY PRN PO CONSTIPATION Last administered on 21:51; Admin Dose 20 GM; Start 10/26/16 at 15:00 Miscellaneous Information 1 ea NOTE XX ; Start 10/26/16 at 15:00 Glucose (Glutose) 15 gm Q15M PRN PO DECREASED GLUCOSE; Start 10/26/16 at 15:00 Glucose (Glutose) 22.5 gm Q15M PRN PO DECREASED GLUCOSE; Start 10/26/16 at 15: 00 Dextrose (D50w Syringe) 25 ml Q15M PRN IV DECREASED GLUCOSE; Start 10/26/16 at 15:00 Dextrose (D50w Syringe) 50 ml Q15M PRN IV DECREASED GLUCOSE; Start 10/26/16 at 15:00 Glucagon (Glucagen) 1 mg Q15M PRN IM DECREASED GLUCOSE; Start 10/26/16 at 15:00 Glucose (Glutose) 15 gm Q15M PRN BUCCAL DECREASED GLUCOSE; Start 10/26/16 at 15 :00 Carisoprodol (Soma) 350 mg Q8H PRN PO MUSCLE SPASMS Last administered on 09:54; Admin Dose 350 MG; Start 10/26/16 at 17:00 Senna (Senokot) 2 tab BID PO Last administered on 11/01/16 08:16; Admin Dose 2 TAB; Start 10/27/16 at 21:00 Oxycodone HCl (Oxycontin) 10 mg TID PO Last administered on 11/01/16 08:16; Admin Dose 10 MG; Start 10/27/16 at 13:00 Gabapentin (Neurontin) 100 mg TID PO Last administered on 11/01/16 08:17; Admin Dose 100 MG; Start 10/28/16 at 21:00 Baclofen (Lioresal) 10 mg TID PO Last administered on 11/01/16 08:16; Admin Dose 10 MG; Start 10/28/16 at 21:00 Ciprofloxacin (Cipro) 500 mg DAILY@06 PO Last administered on 11/01/16 06:28; Admin Dose 500 MG; Start 10/29/16 at 16:00; Stop 11/02/16 at 15:59 Assessment/Plan Additional Assessment/Plan Rehab- Severe cervical stenosis with cord compression at C4 through C5, status post cervical decompressive laminectomy. Continue rehab program, anticipate dc tomorrow Acute pain syndrome- improved on current regime Hypertension. Diabetes mellitus. CORRIE RAMOS MD Nov 01, 2016 10:22
--- NOTE | 2016-11-01 11:57 | PN ---
Date/Time of Note Date/Time of Note DATE: 11/01/16 TIME: 11:56 Assessment/Plan VTE Prophylaxis VTE Prophylaxis Intervention: other Lines/Catheters [facility] Saline Lock Urinary Cath still in place: No Assessment/Plan Chief Complaint/Hosp Course 1. Hypertension. - BP ok 2. Diabetes mellitus. - follow blood sugar 3. Severe cervical stenosis with cord compression at C4-5. S/p posterior cervical laminectomy C3 through C7 on 10/23/2016 - continue PT 4. Constipation- Resolved 5. Musculoskeletal Chest Pain, Non Cardiac 6. Rt Lower Lung Atelectasis 7. Urine Culture Enterococcus. Problems: Subjective 24 Hr Interval Summary Free Text/Dictation Patient has no complaints Exam/Review of Systems Vital Signs Vitals Vital Signs Date Time Temp Pulse Resp B/P Pulse Ox O2 Delivery O2 Flow Rate FiO2 11/01/16 09:37 97.8 72 18 164/93 98 11/01/16 09:00 Room Air Intake and Output 10/31/16 10/31/16 11/01/16 15:00 23:00 07:00 Intake Total 410 ml 760 ml Output Total 350 ml Balance 60 ml 760 ml Exam Constitutional: well developed Head: atraumatic, normocephalic Neck: supple Cardiovascular: regular rate and rhythm Gastrointestinal: non-tender, soft Extremities: normal pulses Results Results 24 hrs Laboratory Tests Test 10/31/16 17:04 10/31/16 20:17 11/01/16 03:45 11/01/16 07:37 Bedside Glucose 142 200 189 107 Medications Medications Current Medications Diagnostic Test (Pha) (Accucheck) 1 ea 02 XX Last administered on 11/01/16 03: 56; Admin Dose 1 EA; Start 10/27/16 at 02:00 Amlodipine Besylate (Norvasc) 5 mg DAILY PO Last administered on 11/01/16 08: 15; Admin Dose 5 MG; Start 10/27/16 at 09:00 Atorvastatin Calcium (Lipitor) 40 mg QHS PO Last administered on 10/31/16 20: 24; Admin Dose 40 MG; Start 10/26/16 at 21:00 Dexamethasone (Decadron) 4 mg Q12 IV Last administered on 11/01/16 08:13; Admin Dose 4 MG; Start 10/26/16 at 21:00 Docusate Sodium (Colace) 100 mg BID PO Last administered on 11/01/16 08:15; Admin Dose 100 MG; Start 10/26/16 at 21:00 Famotidine (Pepcid) 20 mg DAILY PO Last administered on 11/01/16 08:16; Admin Dose 20 MG; Start 10/27/16 at 09:00 Acetaminophen/ Hydrocodone Bitart ([place] (5/325)) 1 tab Q4H PRN PO MILD PAIN LEVEL 1-3 Last administered on 11/01/16 03:48; Admin Dose 1 TAB; Start at 15:00 Lisinopril (Zestril) 40 mg DAILY PO Last administered on 11/01/16 08:14; Admin Dose 40 MG; Start 10/27/16 at 09:00 Morphine Sulfate (morphine) 1 mg Q2H PRN IV mild Last administered on 07:22; Admin Dose 1 MG; Start 10/26/16 at 15:00 Morphine Sulfate (morphine) 2 mg Q2H PRN IV PAIN LEVEL 1-5 Last administered on 10/27/16 10:07; Admin Dose 2 MG; Start 10/26/16 at 15:00 Morphine Sulfate (morphine) 4 mg Q4H PRN IV SEVERE PAIN LEVEL 7-10; Start 10/26 at 15:00 Ondansetron HCl (Zofran Inj) 4 mg Q6H PRN IV NAUSEA AND/OR VOMITING; Start at 15:00 Senna (Senokot) 1 tab BID PRN PO CONSTIPATION; Start 10/26/16 at 15:00 Bisacodyl (Dulcolax Supp) 10 mg DAILY PRN [place] CONSTIPATION; Start 10/26/16 at 15 :00 Magnesium Hydroxide (Milk Of Mag) 30 ml BID PRN PO CONSTIPATION; Start at 15:00 Lactulose (Enulose) 20 gm DAILY PRN PO CONSTIPATION Last administered on 21:51; Admin Dose 20 GM; Start 10/26/16 at 15:00 Miscellaneous Information 1 ea NOTE XX ; Start 10/26/16 at 15:00 Glucose (Glutose) 15 gm Q15M PRN PO DECREASED GLUCOSE; Start 10/26/16 at 15:00 Glucose (Glutose) 22.5 gm Q15M PRN PO DECREASED GLUCOSE; Start 10/26/16 at 15: 00 Dextrose (D50w Syringe) 25 ml Q15M PRN IV DECREASED GLUCOSE; Start 10/26/16 at 15:00 Dextrose (D50w Syringe) 50 ml Q15M PRN IV DECREASED GLUCOSE; Start 10/26/16 at 15:00 Glucagon (Glucagen) 1 mg Q15M PRN IM DECREASED GLUCOSE; Start 10/26/16 at 15:00 Glucose (Glutose) 15 gm Q15M PRN BUCCAL DECREASED GLUCOSE; Start 10/26/16 at 15 :00 Carisoprodol (Soma) 350 mg Q8H PRN PO MUSCLE SPASMS Last administered on 09:54; Admin Dose 350 MG; Start 10/26/16 at 17:00 Senna (Senokot) 2 tab BID PO Last administered on 11/01/16 08:16; Admin Dose 2 TAB; Start 10/27/16 at 21:00 Oxycodone HCl (Oxycontin) 10 mg TID PO Last administered on 11/01/16 08:16; Admin Dose 10 MG; Start 10/27/16 at 13:00 Gabapentin (Neurontin) 100 mg TID PO Last administered on 11/01/16 08:17; Admin Dose 100 MG; Start 10/28/16 at 21:00 Baclofen (Lioresal) 10 mg TID PO Last administered on 11/01/16 08:16; Admin Dose 10 MG; Start 10/28/16 at 21:00 Ciprofloxacin (Cipro) 500 mg DAILY@06 PO Last administered on 11/01/16 06:28; Admin Dose 500 MG; Start 10/29/16 at 16:00; Stop 11/02/16 at 15:59 STANLEY BLANCO Nov 01, 2016 11:57
[2016-11-01 21:01] VITALS: BP 129/80; RESP 16
[2016-11-01] MEDS: ATORVASTATIN 40 MG TAB PO SCH (21:17)
[2016-11-02] MEDS: CARISOPRODOL 350 MG TAB PO PRN (01:02)
[2016-11-02] MEDS: HYDROCODONE/APAP (5/325) TAB PO PRN (01:04)
[2016-11-02] MEDS: ACCUCHECK XX SCH (02:00)
[2016-11-02] MEDS: CIPROFLOXACIN 500 MG TAB PO SCH (06:22)
[2016-11-02 07:30] VITALS: BP 136/85; RESP 18
[2016-11-02] MEDS: INSULIN ASPART [NOVOLOG] 3 ML PEN SC SCH (07:35)
[2016-11-02] MEDS: DEXAMETHASONE 4 MG/ML 1 ML INJ IV SCH (08:06)
[2016-11-02] MEDS: LISINOPRIL 20 MG TAB PO SCH (08:08)
[2016-11-02] MEDS: FAMOTIDINE 20 MG TAB PO SCH (08:08)
[2016-11-02] MEDS: oxyCODONE (CR) 10 MG TAB [oxyCONTIN] PO SCH (08:09)
[2016-11-02] MEDS: BACLOFEN 10 MG TAB PO SCH (08:09)
[2016-11-02] MEDS: AMLODIPINE 5 MG TAB PO SCH (08:09)
[2016-11-02] MEDS: GABAPENTIN 100 MG CAP PO SCH (08:09)
[2016-11-02] MEDS: SENNA TAB PO SCH (08:10)
[2016-11-02] MEDS: DOCUSATE SODIUM 100 MG CAP PO SCH (08:10)
--- NOTE | 2016-11-04 23:47 | DS ---
DATE OF ADMISSION: 10/26/2016 DATE OF DISCHARGE: 11/02/2016 ADMISSION DIAGNOSES: 1. Severe cervical stenosis with cord compression at C4 through C5, status post cervical decompress martinez laminectomy. 2. Acute pain syndrome. 3. Hypertension. 4. Diabetes mellitus. 5. Impairments in self-care and mobility. DISCHARGE DIAGNOSES: 1. Severe cervical stenosis with cord compression at C4 through C5, status post cervical decompress martinez laminectomy. 2. Acute pain syndrome. 3. Hypertension. 4. Diabetes mellitus. 5. Improvements in self-care and mobility. HOSPITAL COURSE: The patient was admitted for comprehensive interdisciplinary acute rehab and made excellent functional gains during the course of the stay. The patient progressed from an initial ma ximal assist for self-care and mobility tasks and progressed to the point of standby assist to super vised for all areas of self-care and mobility including ambulating over 200 feet with the use of a f ront-wheel walker. The patient's pain significantly improved during the course of hospitalization. The patient is being discharged home with a recommendation of home health physical therapy and [facility] therapy followup. DISCHARGE MEDICATIONS: Per the medication reconciliation sheet. CONDITION ON DISCHARGE: Stable. Dictated By: CORRIE BAGLEY/PANCHO Conf#: [id number] DID#: [id number]
== END 2016-11-02 10:00 | disposition home health service (06) | DRG 948 ==
LOC: VRC 14:30
PROVIDERS: ADMIT Physical Medicine & Rehabilitation; ATTEND Internal Medicine
DX: G89.18 Other acute postprocedural pain (principal); I10 Essential (primary) hypertension; J98.11 Atelectasis; E11.9 Type 2 diabetes mellitus without complications; K59.00 Constipation, unspecified; R07.89 Other chest pain; R51 Headache; Z74.09 Other reduced mobility
CPT/HCPCS: 70450; 71010; 80053; 81001; 81003; 82962; 85025; 87081; 87086; 93005; 95852; 97110; 97112; 97116; 97150; 97163; 97167; 97530; 97535; J1100; J1815; J2270